=== PATIENT | male | born 1940 | race Caucasian/White ===

== ENCOUNTER 2016-12-09 22:01 | Inpatient (IN) | payer MEDICARE ==
[~2016-12-09] VITALS: Ht 177.8 cm; Wt 80.0 kg
--- NOTE | 2016-12-09 22:33 | PHYS DOC ---
Past Medical History Past Medical History: Anxiety, Bipolar, GERD, High Cholesterol, Hypertension, Other Additional Past Medical Histor: chronic hip pain, epilepsy, restless leg, rhabomylolysis, spinal stenosis Past Surgical History: Appendectomy, Tonsillectomy Additional Past Surgical Histo: orif left leg Alcohol Use: None Drug Use: None Adult General Chief Complaint Chief Complaint: ABNORMAL LABS HPI HPI 76-year-old male who is presenting with an [facility]. Patient apparently has had multiple falls and multiple mental status over the last 2-3 days. He is in no acute distress in the room and is fully alert and oriented and able answer all my questions. He denies any significant pain other than his usual chronic pain that he has in his bilateral hips. He does state he had a blood clot that affected his vision several months ago and was on Plavix therapy but recently was taken off his Plavix after developing an epidural hematoma. He denies any other history of blood clots. She normally requires oxygen therapy for history of COPD. He is saturating appropriately on 2 L nasal cannula. He denies any chest pain. He denies any recent cough or fever. Review of Systems Review of Systems Constitutional: Denies fever or chills [] Eyes: Denies change in visual acuity, redness, or eye pain [] HENT: Denies nasal congestion or sore throat [] Respiratory: Denies cough, has shortness of breath [] Cardiovascular: No additional information not addressed in HPI [] GI: Denies abdominal pain, nausea, vomiting, bloody stools or diarrhea [] : Denies dysuria or hematuria [] Musculoskeletal: Denies back pain or joint pain [] Integument: Denies rash or skin lesions [] Neurologic: Denies headache, focal weakness or sensory changes [] Endocrine: Denies polyuria or polydipsia [] Current Medications Current Medications Current Medications Medications (Trade) Dose Ordered Sig/Umm Start Time Stop Time Status Last Admin Dose Admin Info (Do NOT chart on this entry -- for MONITORING) 1 each PRN DAILY PRN 12/09/16 23:15 12/11/16 23:14 Iohexol (Omnipaque 300 Mg/ml) 75 ml 1X ONCE 12/09/16 23:00 12/09/16 23:01 DC Allergies Allergies Allergies Coded Allergies Type Severity Reaction Last Updated Verified No Known Drug Allergies 12/09/16 No Physical Exam Physical Exam Constitutional: Well developed, well nourished, no acute distress, non-toxic appearance. [] HENT: Normocephalic, atraumatic, bilateral external ears normal, oropharynx moist, no oral exudates, nose normal. [] Eyes: PERRLA, EOMI, conjunctiva normal, no discharge. [] Neck: Normal range of motion, no tenderness, supple, no stridor. [] Cardiovascular:Heart rate regular rhythm, no murmur [] Lungs & Thorax: Bilateral breath sounds clear to auscultation [] Abdomen: Bowel sounds normal, soft, no tenderness, no masses, no pulsatile masses. [] Skin: Warm, dry, no erythema, no rash. [] Back: No tenderness, no CVA tenderness. [] Extremities: No tenderness, no cyanosis, no clubbing, ROM intact, no edema. [] Neurologic: Alert and oriented X 3, normal motor function, normal sensory function, no focal deficits noted. [] Psychologic: Affect normal, judgement normal, mood normal. [] Current Patient Data Vital Signs Vital Signs Date Time Temp Pulse Resp B/P Pulse Ox O2 Delivery O2 Flow Rate FiO2 12/09/16 22:33 72 143/86 94 Room Air 12/09/16 22:05 99.0 18 2 99.0 Lab Values Laboratory Tests Test 12/09/16 22:30 12/09/16 22:48 White Blood Count 8.4x10^3/uL (4.0-11.0) Red Blood Count 3.68x10^6/uL (4.30-5.70) L Hemoglobin 12.2g/dL (13.0-17.5) L Hematocrit 35.6% (39.0-53.0) L Mean Corpuscular Volume 97fL (79-100) Mean Corpuscular Hemoglobin 33pg (25-35) Mean Corpuscular Hemoglobin Concent 34g/dL (31-37) Red Cell Distribution Width 13.8% (11.5-14.5) Platelet Count 172x10^3/uL (140-400) Neutrophils (%) (Auto) 87% (31-73) H Lymphocytes (%) (Auto) 5% (24-48) L Monocytes (%) (Auto) 8% (0-9) Eosinophils (%) (Auto) 0% (0-3) Basophils (%) (Auto) 1% (0-3) Neutrophils # (Auto) 7.2x10^3uL (1.8-7.7) Lymphocytes # (Auto) 0.4x10^3/uL (1.0-4.8) L Monocytes # (Auto) 0.6x10^3/uL (0.0-1.1) Eosinophils # (Auto) 0.0x10^3/uL (0.0-0.7) Basophils # (Auto) 0.0x10^3/uL (0.0-0.2) Segmented Neutrophils % 86% (35-66) H Lymphocytes % 8% (24-48) L Monocytes % 6% (0-10) Platelet Estimate Adequate (ADEQUATE) Sodium Level 136mmol/L (136-145) Potassium Level 4.0mmol/L (3.5-5.1) Chloride Level 100mmol/L (98-107) Carbon Dioxide Level 28mmol/L (21-32) Anion Gap 8 (6-14) Blood Urea Nitrogen 16mg/dL (8-26) Creatinine 1.1mg/dL (0.7-1.3) Estimated GFR (Cockcroft-Gault) 65.1 Glucose Level 118mg/dL (70-99) H Calcium Level 8.8mg/dL (8.5-10.1) Troponin I Quantitative < 0.017ng/mL (0.000-0.055) Urine Collection Type Unknown Urine Color Yellow Urine Clarity Clear Urine pH 8.0 Urine Specific [place] <=1.005 Urine Protein Negativemg/dL (NEG-TRACE) Urine Glucose (UA) Negativemg/dL (NEG) Urine Ketones (Stick) Negativemg/dL (NEG) Urine Blood Negative (NEG) Urine Nitrite Negative (NEG) Urine Bilirubin Negative (NEG) Urine Urobilinogen Dipstick 1.0mg/dL (0.2 mg/dL) Urine Leukocyte Esterase Negative (NEG) Urine RBC Rare/HPF (0-2) Urine WBC 0/HPF (0-4) Urine Squamous Epithelial Cells Occ/LPF Urine Bacteria 0/HPF (0-FEW) Urine Opiates Screen Pos (NEG) Urine Methadone Screen Neg (NEG) Urine Barbiturates Neg (NEG) Urine Phencyclidine Screen Neg (NEG) Urine Amphetamine/Methamphetamine Neg (NEG) Urine Benzodiazepines Screen Neg (NEG) Urine Cocaine Screen Neg (NEG) Urine Cannabinoids Screen Neg (NEG) Urine Ethyl Alcohol Neg (NEG) Laboratory Tests 12/09/16 22:30 Laboratory Tests 12/09/16 22:30 EKG EKG His EKG demonstrates a sinus rhythm with rate of 78 bpm with no acute ischemic findings seen. His intervals are normal. There is no ectopy. There is a leftward axis. This EKG does not meet STEMI criteria. Radiology/Procedures Radiology/Procedures CTA of the chest demonstrates the following: PROCEDURE CT angiogram chest. HISTORY Short of air. TECHNIQUE Axial images and coronal and sagittal maximum intensity projection re-formatted images are provided. 75 milliliters of intravenous Omnipaque 300 was administered. One or more of the following individualized dose reduction techniques were utilized for this exam: 1. Automated exposure control. 2. Adjustment of the mA and/or kV according to patient's size. 3. Use of iterative reconstruction technique. COMPARISON None. FINDINGS The contrast bolus is satisfactory. There is thrombus noted within a left upper lobe pulmonary artery, axial image 60 and coronal image 30. Additional eccentric thrombus is noted in a left upper lobe pulmonary artery, axial image 64. There is no right heart strain. There is no evidence of pulmonary infarct. Ascending aorta is ectatic, 4.3 centimeters in diameter. There is atheromatous disease in the thoracic aorta. Heart is not enlarged. Coronary artery calcifications are mild. There is no hilar or mediastinal adenopathy. Central airways are patent. There are linear bands of atelectasis in the lung bases along with dependent atelectasis. There is no pleural effusion. There is elevation of the right hemidiaphragm. There are degenerative changes in the spine. Report was called to the ER physician. IMPRESSION - Exam is positive for pulmonary embolism in the left upper lobe segmental arteries, some of this thrombus is eccentrically positioned and could be chronic. Correlate with exam findings. - No evidence of heart strain. - Ectasia of ascending aorta. One view of the chest did show some overlying bowel pattern below the right hemidiaphragm but no other acute abnormality as interpreted by me. Electronically signed by: Yan Acosta MD (Dec 09, 2016 23:54:00) PROCEDURE CT abdomen and pelvis with contrast. HISTORY Abdominal pain. Concern for free air on KUB. TECHNIQUE Axial images and coronal and sagittal re-formatted images are provided. 75 milliliters of intravenous Omnipaque 300 was administered for today's exams. One or more of the following individualized dose reduction techniques were utilized for this exam: 1. Automated exposure control. 2. Adjustment of the mA and/or kV according to patient's size. 3. Use of iterative reconstruction technique. COMPARISON None. FINDINGS There is colonic interposition between the liver and diaphragm corresponding to the area of concern on KUB. There is no definite free air. Sub centimeter low-density lesion in the liver is probably a cyst. Gallbladder is contracted. Spleen is not enlarged. Pancreas and adrenals are unremarkable. Kidneys are symmetrically perfused. There is atheromatous disease in the abdominal aorta without aneurysm. There is no small bowel obstruction or mural thickening. There is a moderate amount of stool in the colon. Bladder is unremarkable. Prostate is not enlarged. Prominent fat in the left inguinal canal is noted, mild. There is subcutaneous edema. There are degenerative changes in the spine. IMPRESSION Colonic interposition between the liver and diaphragm corresponding to the area of concern on KUB. No evidence of free air. Electronically signed by: Yan Acosta MD (Dec 09, 2016 23:58:29 Course & Med Decision Making Course & Med Decision Making Pertinent Labs and Imaging studies reviewed. (See chart for details) 76 year old male who presents from [facility] for an elevated d-dimer after having several falls and some altered mental status will have a full laboratory workup including a CTA of his chest to rule out any pulmonary embolus. His EKG is unremarkable this time. His laboratory workup is fairly unremarkable. CT of his chest demonstrates some pulmonary emboli that could be chronic in the segmental arteries of the left upper lobe. Be admitting him for this finding in his continued mental status changes well. A dose of Lovenox was administered. I discussed these findings with the hospitalist, Dr. Hawkins, who agreed with this plan to admit and be further evaluated. He was admitted without incident. Dragon Disclaimer Dragon Disclaimer This electronic medical record was generated, in whole or in part, using a voice recognition dictation system. Departure Departure Impression: Primary Impression: Pulmonary embolism Disposition: ADMITTED INPATIENT Admitting Physician: Giselle Hawkins Condition: STABLE ELE WHALEY DO Dec 09, 2016 22:33
[2016-12-09 22:41] LABS: BASO % 1 % (0-3); EOS % 0 % (0-3); HEMATOCRIT 35.6 % (39.0-53.0); HEMOGLOBIN 12.2 g/dL (13.0-17.5); LYMPH # 0.4 x10^3/uL (1.0-4.8); LYMPH % 5 % (24-48); MEAN CORPUSCULAR HEMOGLOBIN 33 pg (25-35); MEAN CORPUSCULAR HGB CONC 34 g/dL (31-37); MEAN CORPUSCULAR VOLUME 97 fL (79-100); MONO % 8 % (0-9); NEUT % 87 % (31-73); PLATELET COUNT 172 x10^3/uL (140-400); RED BLOOD COUNT 3.68 x10^6/uL (4.30-5.70); RED CELL DISTRIBUTION WIDTH 13.8 % (11.5-14.5); WHITE BLOOD COUNT 8.4 x10^3/uL (4.0-11.0)
[2016-12-09 22:52] LABS: CALCIUM 8.8 mg/dL (8.5-10.1); CREATININE 1.1 mg/dL (0.7-1.3); GFR 65.1
[2016-12-09 22:54] LABS: BILIRUBIN,URINE NEGATIVE (NEG); GLUCOSE,URINE NEGATIVE (NEG); NITRITE,URINE NEGATIVE (NEG); PROTEIN,URINE NEGATIVE (NEG-TRACE)
[2016-12-09] MEDS ORDERED: IOHEXOL 300 MG/ML 75 ML VIAL IV ONE (23:00)
[2016-12-09 23:05] LABS: BACTERIA,URINE 0 /HPF (0-FEW); RBC,URINE RARE /HPF (0-2); SQUAMOUS EPITHELIAL CELL,UR OCC /LPF; WBC,URINE 0 /HPF (0-4)
[2016-12-09 23:05] LABS: PLT ESTIMATE ADEQUATE (ADEQUATE)
[2016-12-09] MEDS ORDERED: CONTRAST GIVEN MC PRN (23:15)
--- NOTE | 2016-12-09 23:55 | RAD ---
PROCEDURE CT angiogram chest. HISTORY Short of air. TECHNIQUE Axial images and coronal and sagittal maximum intensity projection re-formatted images are provided. 75 milliliters of intravenous Omnipaque 300 was administered. One or more of the following individualized dose reduction techniques were utilized for this exam: 1. Automated exposure control. 2. Adjustment of the mA and/or kV according to patient's size. 3. Use of iterative reconstruction technique. COMPARISON None. FINDINGS The contrast bolus is satisfactory. There is thrombus noted within a left upper lobe pulmonary artery, axial image 60 and coronal image 30. Additional eccentric thrombus is noted in a left upper lobe pulmonary artery, axial image 64. There is no right heart strain. There is no evidence of pulmonary infarct. Ascending aorta is ectatic, 4.3 centimeters in diameter. There is atheromatous disease in the thoracic aorta. Heart is not enlarged. Coronary artery calcifications are mild. There is no hilar or mediastinal adenopathy. Central airways are patent. There are linear bands of atelectasis in the lung bases along with dependent atelectasis. There is no pleural effusion. There is elevation of the right hemidiaphragm. There are degenerative changes in the spine. Report was called to the ER physician. IMPRESSION - Exam is positive for pulmonary embolism in the left upper lobe segmental arteries, some of this thrombus is eccentrically positioned and could be chronic. Correlate with exam findings. - No evidence of heart strain. - Ectasia of ascending aorta. Electronically signed by: Yan Acosta MD (Dec 09, 2016 23:54:00)
--- NOTE | 2016-12-09 23:59 | RAD ---
PROCEDURE CT abdomen and pelvis with contrast. HISTORY Abdominal pain. Concern for free air on KUB. TECHNIQUE Axial images and coronal and sagittal re-formatted images are provided. 75 milliliters of intravenous Omnipaque 300 was administered for today's exams. One or more of the following individualized dose reduction techniques were utilized for this exam: 1. Automated exposure control. 2. Adjustment of the mA and/or kV according to patient's size. 3. Use of iterative reconstruction technique. COMPARISON None. FINDINGS There is colonic interposition between the liver and diaphragm corresponding to the area of concern on KUB. There is no definite free air. Sub centimeter low-density lesion in the liver is probably a cyst. Gallbladder is contracted. Spleen is not enlarged. Pancreas and adrenals are unremarkable. Kidneys are symmetrically perfused. There is atheromatous disease in the abdominal aorta without aneurysm. There is no small bowel obstruction or mural thickening. There is a moderate amount of stool in the colon. Bladder is unremarkable. Prostate is not enlarged. Prominent fat in the left inguinal canal is noted, mild. There is subcutaneous edema. There are degenerative changes in the spine. IMPRESSION Colonic interposition between the liver and diaphragm corresponding to the area of concern on KUB. No evidence of free air. Electronically signed by: Yan Acosta MD (Dec 09, 2016 23:58:29)
[2016-12-10] MEDS ORDERED: ONDANSETRON PF 4 MG/2 ML VIAL. IV PRN ×2 (00:15→08:56)
[2016-12-10] MEDS ORDERED: ENOXAPARIN ** NOTE DOSE ** SYRINGE SQ ONE (00:15)
[2016-12-10] MEDS ORDERED: ACETAMINOPHEN 325 MG TABLET. PO PRN (00:15)
[2016-12-10] MEDS ORDERED: IV NORMAL SALINE 1000ML BAG 1,000 ML IV SCH (00:15)
[2016-12-10 00:42] LABS: BARBITURATES NEG (NEG); BENZODIAZEPINES NEG (NEG); CANNABINOIDS NEG (NEG); COCAINE NEG (NEG); METHADONE NEG (NEG); OPIATES POS (NEG); PHENCYCLIDINE NEG (NEG)
[2016-12-10 00:43] LABS: ETHANOL, URINE NEG (NEG)
--- NOTE | 2016-12-10 01:14 | ACF ---
Admission Forms Criteria PULMONARY EMBOLISM Clinical Indications for Admission to Inpatient Care (Place 'X' for any and all applicable criteria): Admission is indicated by ANY ONE of the following 1,2,3,4,5 [ ]I. Onset of hypoxia [ ]II. Hemodynamic instability 5 [ ]III. Massive pulmonary embolism (eg, acute embolism causing sustained hypotension, pulselessness, or bradycardia)5 [ ]IV. Need for IV narcotics (eg, to treat dyspnea) [ ]V. Current use of home oxygen therapy [ ]. Active bleeding [ ]VII. Recent surgery [ ]VIII. Active peptic ulcer disease [ ]IX. Documented extensive thrombosis (eg, clot in vena cava or above iliofemoral bifurcation) [ ]X. Embolism while on anticoagulation [ ]XI. 6 [X]XII. Appropriate monitoring and therapy cannot be provided in home or outpatient setting. [ ]XIII. Systemic or catheter-directed thrombolysis 5,7 [ ]XIV. Catheter embolectomy and fragmentation 6 [ ]XV. Vena cava filter placement5 [ ]XVI. Severely diminished cardiopulmonary reserve (eg, cor pulmonale, pulmonary hypertension) [ ]XVII. Severe renal failure (eg, GFR less than 30 mL/min/1.73m2 (0.5 mL/sec/ 1.73m2)) [ ]XVIII.Right ventricular dysfunction (eg, by echocardiogram) 6,11 [ ]XIX. Positive cardiac biomarker (eg, troponin T or I > 0.1 ng/mL (mcg/L), highly sensitive troponin I assay greater than 0.014 ng/mL (mcg/L), BNP or NT proBNP > assay threshold)5,8,9 [ ]XX. Known clotting abn or def (eg, liver disease, antithrombin III, protein C, or protein S abnormality) [ ]XXI. History of heparin-induced thrombocytopenia [ ]XXII. Inpatient admission required rather than observation care (Also use Pulmonary Embolism: Observation Care guideline as appropriate) because of ANY ONE of the following: [ ] a) Significant autoimmune (thrombocytopenia) or coagulopathic reaction occurs in response to anticoagulation [ ] b) Respiratory symptoms (eg, tachypnea, dyspnea) that are severe or persistent [ ] c) Other condition, treatment, or monitoring requiring inpatient admission Extended stay beyond goal length of stay may be needed for 3,28 [ ]a) Hemorrhage or recent surgery [ ]b) Recurrent thromboembolism [ ]c) Persistent hypoxemia [ ]d) Heparin-induced thrombocytopenia The original [facility] content created by [facility] has been revised. The portions of the content which have been revised are identified through the use of italic text or in bold, and [facility] has neither reviewed nor approved the modified material. All other unmodified content is copyright [facility]. Please see references footnoted in the original [facility] edition 2016 Admission Criteria Met?: Yes PADMAJA HERRERA Dec 10, 2016 01:14
--- NOTE | 2016-12-10 01:17 | EKG ---
[facility] [address] [place] [address] Test Date: 2016-12-09 Test Time: 22:20:41 Pat Name: SEBASTIAN CHAVARRIA Department: Room: Gender: M [employer] Teacher: : 1940 Requested By: ELE WHALEY Order Number: [id number] Reading MD: Measurements Intervals [place] Rate: 78 P: 68 IA: 178 QRS: -7 QRSD: 92 T: 62 QT: 396 QTc: 455 Interpretive Statements SINUS RHYTHM LEFTWARD AXIS OTHERWISE NORMAL ECG RI6.01 No previous ECG available for comparison
[2016-12-10 02:15] VITALS: BP 164/85
[2016-12-10] MEDS ORDERED: MAGN400O4 PO (03:12)
[2016-12-10] MEDS ORDERED: FLUO40CA2 PO (03:12)
[2016-12-10] MEDS ORDERED: GABA-586 PO (03:12)
[2016-12-10] MEDS ORDERED: CYCL10TA2 PO (03:12)
[2016-12-10] MEDS ORDERED: CALC-56 PO (03:12)
[2016-12-10] MEDS ORDERED: TAMS0.4C2 PO (03:12)
[2016-12-10] MEDS ORDERED: CLON2TAB2 PO (03:12)
[2016-12-10] MEDS ORDERED: MELO-156 PO (03:12)
[2016-12-10] MEDS ORDERED: LAMO200T PO (03:12)
[2016-12-10] MEDS ORDERED: BISA10SU55 RC (03:12)
[2016-12-10] MEDS ORDERED: NA P133E2 RC (03:12)
[2016-12-10] MEDS ORDERED: MORP15TA PO (03:12)
[2016-12-10] MEDS ORDERED: MULT1TAB90 PO (03:12)
[2016-12-10] MEDS ORDERED: LIDO700A4 TP (03:12)
[2016-12-10] MEDS ORDERED: IPRA3AMP NEB (03:12)
[2016-12-10] MEDS ORDERED: CYAN100031 PO (03:12)
[2016-12-10] MEDS ORDERED: MAG360OR24 PO (03:12)
[2016-12-10] MEDS ORDERED: DOCU100C5 PO (03:12)
[2016-12-10] MEDS ORDERED: OMEP40CA5 PO (03:12)
[2016-12-10] MEDS ORDERED: RISP2TAB3 PO (03:12)
[2016-12-10] MEDS ORDERED: ATOR20TA58 PO (03:12)
[2016-12-10] MEDS ORDERED: GABA-585 PO (03:12)
[2016-12-10] MEDS ORDERED: [UNRECOGNIZED DRUG - CODE] PO (03:12)
[2016-12-10] MEDS ORDERED: OXYB5SYR2 PO (03:12)
[2016-12-10] MEDS ORDERED: GLUC1TAB33 PO (03:12)
[2016-12-10 07:57] VITALS: BP 171/97
[2016-12-10] MEDS ORDERED: [UNRECOGNIZED DRUG - OTHER] PO SCH (09:00)
[2016-12-10] MEDS ORDERED: SODIUM PHOSPHATES 19/7GM 133 ML ENEMA. RC PRN (09:00)
[2016-12-10] MEDS ORDERED: CYCLOBENZAPRINE 10 MG TABLET. PO PRN (09:00)
[2016-12-10] MEDS ORDERED: ALBUTEROL SULFATE 2.5 MG/3 ML NEBU. NEB PRN (09:00)
[2016-12-10] MEDS ORDERED: GLUC SU PO SCH (09:00)
[2016-12-10] MEDS ORDERED: CHONDRO SU A PO SCH (09:00)
[2016-12-10] MEDS ORDERED: MAGNESIUM HYDROXIDE 2,400 MG/30 ML ORAL.SUSP. PO PRN (09:00)
[2016-12-10] MEDS ORDERED: DOCUSATE SODIUM 100 MG CAPSULE PO PRN (09:00)
[2016-12-10] MEDS ORDERED: VIT C PO SCH (09:00)
[2016-12-10] MEDS ORDERED: BISACODYL 10 MG SUPP.RECT. RC PRN (09:00)
[2016-12-10] MEDS ORDERED: ANTI-COAG MONITOR BY PHARMACY. MC PRN (09:15)
[2016-12-10] MEDS ORDERED: MAG HYDROX/ALUMINUM HYD/SIMETH 30 ML ORAL.SUSP PO PRN (09:30)
--- NOTE | 2016-12-10 10:03 | PDOC ---
Provider Note Provider Note [id number] pe gerd anti coag le venous doppler ADELE FARIAS MD Dec 10, 2016 10:03
[2016-12-10] MEDS: LIDOCAINE (700MG/PATCH) PATCH. TP SCH (10:34)
[2016-12-10] MEDS: MORPHINE IR 15 MG TABLET PO PRN (10:37)
[2016-12-10] MEDS: CYANOCOBALAMIN (VITAMIN B-12) 1,000 MCG TABLET. PO SCH (10:38)
[2016-12-10] MEDS: GABAPENTIN 100 MG CAPSULE. PO SCH (10:38)
[2016-12-10] MEDS: MULTIVITAMIN with MINERAL TABLET. PO SCH (10:38)
[2016-12-10] MEDS: CALCIUM CARB/VIT D3 500/200 TABLET. PO SCH (10:38)
[2016-12-10] MEDS: ASCORBIC ACID 500 MG TABLET PO SCH (10:38)
[2016-12-10] MEDS: TAMSULOSIN 0.4 MG CAP.ER.24H. PO SCH (10:39)
[2016-12-10] MEDS: lamoTRIgine 100 MG TABLET. PO SCH (10:39)
[2016-12-10] MEDS: OXYBUTYNIN CHLORIDE 5 MG TABLET PO SCH ×3 (10:39→21:37)
[2016-12-10] MEDS: PANTOPRAZOLE 40 MG TABLET. PO SCH (10:40)
[2016-12-10] MEDS: FLUOXETINE HCL 20 MG CAPSULE PO SCH (10:41)
[2016-12-10] MEDS: ENOXAPARIN ** NOTE DOSE ** SYRINGE SQ SCH ×2 (10:42→21:38)
[2016-12-10 11:28] VITALS: BP 151/94
--- NOTE | 2016-12-10 11:59 | PDOC1 ---
History and Physical Date of Admission Date of Admission DATE: 12/10/16 TIME: 11:51 Identification/Chief Complaint Chief Complaint sent form [facility] bec of elevated d dimer./abn labs Source Source: Caregiver, Chart review, Patient History of Present Illness History of Present Illness 76 y.o male who has been staying at [facility] x 1 week now, sent by staff bec of abN labs/elevated d dimer, BUt accdg to pt he has been having worse Left > R hip pain, that was his main complaint. HE ambulates with wheelchair. LAbs ok except for elevated d dimer and so CTA done at ER and showed small, eccentric possibly subacute PE,. NO desaturations, pt denies SOA, got a dose of Lovenox 80 SQ once at ER, Hemodynamically stable. 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 No evidence of free air. Pt not the best historian Past Medical History Psych: Depression Musculoskeletal: low back pain Renal/: Benign prostatic enlarg. Past Surgical History Past Surgical History: No pertinent history Family History Family History: No Significant Social History Smoke: No ALCOHOL: none Drugs: None Current Problem List Problem List Problems Medical Problems: (1) Pulmonary embolism Status: Acute Problems: Current Medications Current Medications Current Medications Iohexol (Omnipaque 300 Mg/ml) 75 ml 1X ONCE IV ; Start 12/09/16 at 23:00; Stop 12/09/16 at 23:01; Status DC Info (Do NOT chart on this entry -- for MONITORING) 1 each PRN DAILY PRN MC SEE COMMENTS; Start 12/09/16 at 23:15; Stop 12/11/16 at 23:14 Enoxaparin Sodium (Lovenox 80mg Syringe) 80 mg 1X ONCE SQ Last administered on 12/10/16 00:43; Start 12/10/16 at 00:15; Stop 12/10/16 at 00:16; Status DC Ondansetron HCl 4 mg 4 mg PRN Q8HRS PRN IV NAUSEA/VOMITING; Start 12/10/16 at 00:15; Stop 12/10/16 at 08:59; Status DC Sodium Chloride (Iv Sodium Chloride 0.9% 1000ml Bag) 1,000 ml @ 100 mls/hr Q10H IV Last administered on 12/10/16 04:05; Start 12/10/16 at 00:15; Stop at 00:14 Acetaminophen (Tylenol) 650 mg PRN Q4HRS PRN PO FEVER; Start 12/10/16 at 00:15 ; Stop 12/11/16 at 00:14 Ondansetron HCl (Zofran) 4 mg PRN Q6HRS PRN IV NAUSEA/VOMITING; Start 12/10/16 at 08:56 Enoxaparin Sodium (Lovenox 80mg Syringe) 80 mg Q12HR SQ Last administered on 10:42; Start 12/10/16 at 09:30 Atorvastatin Calcium (Lipitor) 20 mg HS PO ; Start 12/10/16 at 21:00 Bisacodyl (Dulcolax Supp) 10 mg PRN DAILY PRN RC CONSTIPATION; Start 12/10/16 at 09:00 Calcium/Vitamin D (Oscal D 500mg/ 200uts) 1 tab DAILY PO Last administered on 10:38; Start 12/10/16 at 10:00 Cyclobenzaprine HCl (Flexeril) 10 mg PRN Q8HRS PRN PO MUSCLE SPASMS; Start at 09:00 Docusate Sodium (Colace) 100 mg PRN BID PRN PO CONSTIPATION; Start 12/10/16 at 09:00 Gabapentin (Neurontin) 200 mg DAILY PO Last administered on 12/10/16 10:38; Start 12/10/16 at 09:30 Gabapentin (Neurontin) 300 mg HS PO ; Start 12/10/16 at 21:00 Albuterol Sulfate (Ventolin Neb Soln) 2.5 mg PRN Q4HRS PRN NEB SHORTNESS OF BREATH; Start 12/10/16 at 09:00 Lidocaine (Lidoderm) 1 patch DAILY TP Last administered on 12/10/16 10:34; Start 12/10/16 at 09:30 Magnesium Hydroxide (Milk Of Magnesia) 400 mg PRN DAILY PRN PO CONSTIPATION; Start 12/10/16 at 09:00 Morphine Sulfate (Morphine Ir) 15 mg PRN Q4HRS PRN PO PAIN SEVERE Last administered on 12/10/16 10:37; Start 12/10/16 at 09:00 Multivitamins (Thera M Plus) 1 tab DAILY PO Last administered on 12/10/16 10: 38; Start 12/10/16 at 09:30 Sodium Biphosphate/ Sodium Phosphate (Fleet Adult) 133 ml PRN DAILY PRN RC CONSTIPATION; Start 12/10/16 at 09:00 Tamsulosin HCl (Flomax) 0.4 mg DAILY PO Last administered on 12/10/16 10:39; Start 12/10/16 at 09:30 Ascorbic Acid (Vitamin C) 1,000 mg DAILY PO Last administered on 12/10/16 10: 38; Start 12/10/16 at 10:00 Clonazepam (Klonopin) 2 mg QHS PO ; Start 12/10/16 at 21:00 Cyanocobalamin (Vitamin B-12) 1,000 mcg DAILY PO Last administered on 10:38; Start 12/10/16 at 09:30 Fluoxetine HCl (Prozac) 40 mg DAILY PO Last administered on 12/10/16 10:41; Start 12/10/16 at 09:30 Non-Formulary Medication 1 each DAILY PO ; Start 12/10/16 at 09:00; Status UNV Lamotrigine (LaMICtal) 200 mg DAILY PO Last administered on 12/10/16 10:39; Start 12/10/16 at 09:30 Al Hydroxide/Mg Hydroxide (Mylanta Plus Xs) 30 ml PRN Q2HR PRN PO CONSTIPATION ; Start 12/10/16 at 09:30 Pantoprazole Sodium (Protonix) 40 mg DAILYAC PO Last administered on 12/10/16 10:40; Start 12/10/16 at 09:30 Oxybutynin Chloride (Ditropan) 5 mg [id number] PO Last administered on 12/10/16 10 :39; Start 12/10/16 at 09:30 Risperidone (Risperdal) 2 mg QHS PO ; Start 12/10/16 at 21:00 Info (Anti-Coagulation Monitoring By Pharmacy) 1 each PRN DAILY PRN MC SEE COMMENTS; Start 12/10/16 at 09:15 Active Scripts Active Reported Alum-Mag Hydroxide-Simeth Liq (Mag Hydrox/Al Hydrox/Simeth) 360 Ml Oral.susp 360 Ml PO PRN Q4HRS PRN Risperidone 2 Mg Tablet 1 Tab PO QHS Tamsulosin Hcl 0.4 Mg Cap.er.24h 1 Cap PO DAILY Cyclobenzaprine Hcl 10 Mg Tablet 1 Tab PO PRN Q8HRS PRN Fleet Enema (Na Phos,M-B/Na Phos,Di-Ba) 133 Ml Enema 1 Each RC DAILY PRN Dulcolax (Bisacodyl) 10 Mg Supp.rect 10 Mg RC PRN DAILY PRN Milk Of Magnesia (Magnesium Hydroxide) 400 Mg/5 Ml Oral.susp 400 Mg PO DAILY PRN Atorvastatin Calcium 20 Mg Tablet 20 Mg PO HS Docusate Sodium 100 Mg Capsule 1 Cap PO BID PRN Calcium 500 + Vit D 200 Caplet (Calcium Carbonate/Vitamin D3) 1 Each Tablet 1 Each PO DAILY Fluoxetine Hcl 40 Mg Capsule 1 Cap PO DAILYWBKFT C-1000 (Ascorbic Acid) 1,000 Mg Tablet 1,000 Mg PO DAILY B-12 (Cyanocobalamin (Vitamin B-12)) 1,000 Mcg Tablet.er 1,000 Mcg PO DAILY Omeprazole 40 Mg Capsule.dr 1 Cap PO DAILY Lamotrigine 200 Mg Tablet 1 Tab PO DAILY Glucosamine Chondroitin Tab (Gluc Cherry/Chondro Cherry A/Vit C/Mn) 1 Each Tablet 1 Each PO DAILY Thera-M Tablet (Multivits,Ca,Minerals/Iron/Fa) 1 Each Tablet 1 Each PO Lidoderm (Lidocaine) 700 Mg Adh..patch 1 Patch TP DAILY Meloxicam 7.5 Mg Tablet 1 Tab PO BID Oxybutynin Chloride 5 Mg/5 Ml Syrup 5 Mg PO TID Clonazepam 2 Mg Tablet 1 Tab PO HS Morphine Sulfate 15 Mg Tablet 15 Mg PO PRN Q4HRS PRN Gabapentin 300 Mg Capsule 300 Mg PO HS Gabapentin 100 Mg Capsule 200 Mg PO DAILY Duoneb 0.5-3(2.5) Mg/3 Ml (Albuterol/Ipratropium) 3 Ml Ampul.neb 3 Ml NEB PRN Q4HRS PRN Allergies Allergies: Coded Allergies: No Known Drug Allergies (Unverified , 12/09/16) ROS Review of System back pain, left > R hip pain, no soa, no cp, no n/v/d Physical Exam General: Alert, Oriented X3, Cooperative, No acute distress HEENT: Atraumatic Lungs: Clear to auscultation Heart: S1S2, RRR, no thrills, no rubs, no gallops, no murmurs Cardiovascular: S1, S2 Abdomen: Normal bowel sounds, Soft, No tenderness, No hepatosplenomegaly, No masses Male Genitals Exam: normal genitalia, normal prostate Rectal Exam: not examined PELVIC: Nml ext genitalia Extremities: Other (bruise Left upper arm and left side) Skin: Other (as above) Neuro: Normal gait, Normal speech, Strength at 5/5 X4 ext, Normal tone, Sensation intact, Cranial nerves 3-12 NL, Reflexes 2+ Psych/Mental Status: Mental status NL, Mood NL Vitals Vitals Vital Signs Date Time Temp Pulse Resp B/P Pulse Ox O2 Delivery O2 Flow Rate FiO2 12/10/16 11:28 98.7 78 20 151/94 90 Room Air 98.7 12/10/16 10:37 2.0 Labs Labs Laboratory Tests Test 12/09/16 22:30 12/09/16 22:48 White Blood Count 8.4x10^3/uL (4.0-11.0) Red Blood Count 3.68x10^6/uL (4.30-5.70) Hemoglobin 12.2g/dL (13.0-17.5) Hematocrit 35.6% (39.0-53.0) Mean Corpuscular Volume 97fL (79-100) Mean Corpuscular Hemoglobin 33pg (25-35) Mean Corpuscular Hemoglobin Concent 34g/dL (31-37) Red Cell Distribution Width 13.8% (11.5-14.5) Platelet Count 172x10^3/uL (140-400) Neutrophils (%) (Auto) 87% (31-73) Lymphocytes (%) (Auto) 5% (24-48) Monocytes (%) (Auto) 8% (0-9) Eosinophils (%) (Auto) 0% (0-3) Basophils (%) (Auto) 1% (0-3) Neutrophils # (Auto) 7.2x10^3uL (1.8-7.7) Lymphocytes # (Auto) 0.4x10^3/uL (1.0-4.8) Monocytes # (Auto) 0.6x10^3/uL (0.0-1.1) Eosinophils # (Auto) 0.0x10^3/uL (0.0-0.7) Basophils # (Auto) 0.0x10^3/uL (0.0-0.2) Segmented Neutrophils % 86% (35-66) Lymphocytes % 8% (24-48) Monocytes % 6% (0-10) Platelet Estimate Adequate (ADEQUATE) Sodium Level 136mmol/L (136-145) Potassium Level 4.0mmol/L (3.5-5.1) Chloride Level 100mmol/L (98-107) Carbon Dioxide Level 28mmol/L (21-32) Anion Gap 8 (6-14) Blood Urea Nitrogen 16mg/dL (8-26) Creatinine 1.1mg/dL (0.7-1.3) Estimated GFR (Cockcroft-Gault) 65.1 Glucose Level 118mg/dL (70-99) Calcium Level 8.8mg/dL (8.5-10.1) Troponin I Quantitative < 0.017ng/mL (0.000-0.055) Urine Collection Type Unknown Urine Color Yellow Urine Clarity Clear Urine pH 8.0 Urine Specific [place] <=1.005 Urine Protein Negativemg/dL (NEG-TRACE) Urine Glucose (UA) Negativemg/dL (NEG) Urine Ketones (Stick) Negativemg/dL (NEG) Urine Blood Negative (NEG) Urine Nitrite Negative (NEG) Urine Bilirubin Negative (NEG) Urine Urobilinogen Dipstick 1.0mg/dL (0.2 mg/dL) Urine Leukocyte Esterase Negative (NEG) Urine RBC Rare/HPF (0-2) Urine WBC 0/HPF (0-4) Urine Squamous Epithelial Cells Occ/LPF Urine Bacteria 0/HPF (0-FEW) Urine Opiates Screen Pos (NEG) Urine Methadone Screen Neg (NEG) Urine Barbiturates Neg (NEG) Urine Phencyclidine Screen Neg (NEG) Urine Amphetamine/Methamphetamine Neg (NEG) Urine Benzodiazepines Screen Neg (NEG) Urine Cocaine Screen Neg (NEG) Urine Cannabinoids Screen Neg (NEG) Urine Ethyl Alcohol Neg (NEG) Laboratory Tests Test 12/09/16 22:30 12/09/16 22:48 White Blood Count 8.4x10^3/uL (4.0-11.0) Red Blood Count 3.68x10^6/uL (4.30-5.70) Hemoglobin 12.2g/dL (13.0-17.5) Hematocrit 35.6% (39.0-53.0) Mean Corpuscular Volume 97fL (79-100) Mean Corpuscular Hemoglobin 33pg (25-35) Mean Corpuscular Hemoglobin Concent 34g/dL (31-37) Red Cell Distribution Width 13.8% (11.5-14.5) Platelet Count 172x10^3/uL (140-400) Neutrophils (%) (Auto) 87% (31-73) Lymphocytes (%) (Auto) 5% (24-48) Monocytes (%) (Auto) 8% (0-9) Eosinophils (%) (Auto) 0% (0-3) Basophils (%) (Auto) 1% (0-3) Neutrophils # (Auto) 7.2x10^3uL (1.8-7.7) Lymphocytes # (Auto) 0.4x10^3/uL (1.0-4.8) Monocytes # (Auto) 0.6x10^3/uL (0.0-1.1) Eosinophils # (Auto) 0.0x10^3/uL (0.0-0.7) Basophils # (Auto) 0.0x10^3/uL (0.0-0.2) Segmented Neutrophils % 86% (35-66) Lymphocytes % 8% (24-48) Monocytes % 6% (0-10) Platelet Estimate Adequate (ADEQUATE) Sodium Level 136mmol/L (136-145) Potassium Level 4.0mmol/L (3.5-5.1) Chloride Level 100mmol/L (98-107) Carbon Dioxide Level 28mmol/L (21-32) Anion Gap 8 (6-14) Blood Urea Nitrogen 16mg/dL (8-26) Creatinine 1.1mg/dL (0.7-1.3) Estimated GFR (Cockcroft-Gault) 65.1 Glucose Level 118mg/dL (70-99) Calcium Level 8.8mg/dL (8.5-10.1) Troponin I Quantitative < 0.017ng/mL (0.000-0.055) Urine Collection Type Unknown Urine Color Yellow Urine Clarity Clear Urine pH 8.0 Urine Specific [place] <=1.005 Urine Protein Negativemg/dL (NEG-TRACE) Urine Glucose (UA) Negativemg/dL (NEG) Urine Ketones (Stick) Negativemg/dL (NEG) Urine Blood Negative (NEG) Urine Nitrite Negative (NEG) Urine Bilirubin Negative (NEG) Urine Urobilinogen Dipstick 1.0mg/dL (0.2 mg/dL) Urine Leukocyte Esterase Negative (NEG) Urine RBC Rare/HPF (0-2) Urine WBC 0/HPF (0-4) Urine Squamous Epithelial Cells Occ/LPF Urine Bacteria 0/HPF (0-FEW) Urine Opiates Screen Pos (NEG) Urine Methadone Screen Neg (NEG) Urine Barbiturates Neg (NEG) Urine Phencyclidine Screen Neg (NEG) Urine Amphetamine/Methamphetamine Neg (NEG) Urine Benzodiazepines Screen Neg (NEG) Urine Cocaine Screen Neg (NEG) Urine Cannabinoids Screen Neg (NEG) Urine Ethyl Alcohol Neg (NEG) VTE Prophylaxis Ordered VTE Prophylaxis Devices: Yes VTE Pharmacological Prophylaxi: Yes Assessment/Plan Assessment/Plan 1. Subacute eccentric PE 2. Bruising left side possibly fall 3. Depression NOS 4. Chronic lumbago 5. Bilateral hip pain L> R 6. MOderate PCM 7. Anemia of chronic dse PLAN LOvenox 80 BID - though PE seems to be very small, eccentric, subaute and pt de jesus snot display and respi issues COnsult pulmo PT/OT Check xray hips Involve physiatry re hip pains Significant bruising on left side, if any signif pains with PT might need rib xray r/o fx Cont home meds Dw ot and RALPH ESPINAL MD Dec 10, 2016 11:59
--- NOTE | 2016-12-10 12:39 | RAD ---
Indication positive study for pulmonary embolus. Assess source. Grayscale color Doppler and spectral imaging was performed. Examination was targeted to the veins of the lower extremities. The common femoral, femoral and popliteal vessels, bilaterally, appeared normal. No thrombus was seen. The visualized calf veins also appeared normal. IMPRESSION: Negative bilateral lower extremity venous analysis for DVT
[2016-12-10 14:15] VITALS: BP 131/83
--- NOTE | 2016-12-10 14:24 | RAD ---
Indication bilateral hip pain. An AP view of the pelvis was obtained as well as additional targeted AP and frog leg views of both hips. No acute or significant bony finding is seen involving either hip. Significant degenerative changes are not seen involving either hip.
--- NOTE | 2016-12-10 15:17 | CONS ---
DATE OF CONSULTATION: 12/10/2016 I was asked to see this 76-year-old gentleman for pulmonary embolism. HISTORY OF PRESENT ILLNESS: He has a history of [id number] smoking, started smoking at age 27. He denies shortness of breath, cough, and chest pain. He has nasal congestion and runny nose. He denies gastroesophageal reflux symptoms. Of note, he had elevated D-dimer from [facility] and has had multiple falls and syncopal episodes; he does not know about the details. He was on Plavix for a blood clot which affected his vision several months ago. Plavix was stopped and he had epidural injection, but he developed epidural hematoma, and he has been off Plavix for the past month. PAST MEDICAL HISTORY: Anxiety, bipolar, gastroesophageal reflux disease, hypertension, hypercholesterolemia, CVA, and chronic pain. ALLERGIES: No known drug allergies. MEDICATIONS: Currently, he is on Lovenox, Risperdal, Klonopin, Neurontin, Lipitor, vitamin C, calcium, vitamin D, Ditropan, Protonix, Lamictal, Prozac, vitamin B12, Flomax, multivitamin. SOCIAL HISTORY: He has a history of [id number] smoking, started smoking at the age 27. FAMILY HISTORY: Positive for hypertension. REVIEW OF SYSTEMS: As mentioned above. He has had a hip pain. Other systems, otherwise, negative. PHYSICAL EXAMINATION: GENERAL: Clinically ill-appearing gentleman. His O2 saturation is 95% on 2L. Blood pressure 164/85, temperature 98.6, respiratory rate 20, heart rate 73. HEENT: Normocephalic, atraumatic. Pupils equal, round, and reactive to light. Throat is clear. Nose is inflamed. NECK: There is no JVD, lymphadenopathy, or thyromegaly. CARDIOVASCULAR: Regular rate and rhythm. PMO is nondisplaced. CHEST: Inspection is normal. LUNGS: Clear to auscultation. There is no wheezing. ABDOMEN: Soft, bowel sounds are good. There is no mass. EXTREMITIES: There is no edema. NEUROLOGIC: Alert and oriented x 3. SKIN: Chronic changes. DIAGNOSTIC DATA: I reviewed the following lab data. CT of the chest did show pulmonary embolism in left upper lobe segmental arteries. Some of the thrombus is eccentrically positioned and could be chronic. No evidence of heart strain or ectasia of ascending aorta. 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 No evidence of free-air. WBC 8.4, hemoglobin 12.2, platelets of 172. Sodium 136, potassium 4, chloride 100, C02 of 28, glucose 118, BUN 16, creatinine 1.1. Troponin less than 0.01. IMPRESSION: 1. Pulmonary embolism. 2. Abnormal CT of the chest. 3. Gastroesophageal reflux disease. 4. Hypertension. 5. Anemia. 6. Bipolar and anxiety. 7. History of cerebrovascular accident. 8. Hip pain. PLAN AND RECOMMENDATION: 1. ____ saturation 92%. 2. I agree with Lovenox 1 mg per kilogram b.i.d. subQ. 3. I will order lower extremity venous Doppler. 4. Protonix for gastroesophageal reflux disease. 5. Monitor respiratory status very closely. 6. Monitor for bleeding while the patient is on anticoagulation. 7. May consider Coumadin versus Xarelto. 8. The findings and recommendations were discussed with the patient. He understood and agrees to proceed with the plan. I have answered all of his questions. Thank you very much for allowing me to participate in care of this very nice gentleman. MIKHAIL JIN MD DR: NUPUR/reji JOB#: [id number] / [id number]
[2016-12-10 19:34] VITALS: BP 116/61
[2016-12-10] MEDS: risperiDONE 1 MG TABLET. PO SCH (21:36)
[2016-12-10] MEDS: GABAPENTIN 300 MG CAPSULE. PO SCH (21:37)
[2016-12-10] MEDS: ATORVASTATIN CALCIUM 20 MG TABLET PO SCH (21:37)
[2016-12-10] MEDS: CLONAZEPAM 1 MG TABLET PO SCH (21:37)
[2016-12-10 23:31] VITALS: BP 131/82
[2016-12-11 02:11] VITALS: BP 129/78
[2016-12-11] MEDS: MORPHINE IR 15 MG TABLET PO PRN ×4 (03:07→21:02)
[2016-12-11 05:28] LABS: BASO % 1 % (0-3); EOS % 3 % (0-3); HEMOGLOBIN 11.9 g/dL (13.0-17.5); LYMPH # 0.9 x10^3/uL (1.0-4.8); LYMPH % 13 % (24-48); MEAN CORPUSCULAR HEMOGLOBIN 34 pg (25-35); MEAN CORPUSCULAR HGB CONC 34 g/dL (31-37); MEAN CORPUSCULAR VOLUME 99 fL (79-100); MONO % 10 % (0-9); NEUT % 73 % (31-73); PLATELET COUNT 163 x10^3/uL (140-400); RED BLOOD COUNT 3.55 x10^6/uL (4.30-5.70); RED CELL DISTRIBUTION WIDTH 13.7 % (11.5-14.5); WHITE BLOOD COUNT 7.1 x10^3/uL (4.0-11.0)
[2016-12-11 05:33] LABS: CREATININE 1.1 mg/dL (0.7-1.3); GFR 65.1; POTASSIUM 3.5 mmol/L (3.5-5.1)
[2016-12-11 07:00] VITALS: BP 143/85
[2016-12-11] MEDS: LIDOCAINE (700MG/PATCH) PATCH. TP SCH (10:06)
[2016-12-11] MEDS: TAMSULOSIN 0.4 MG CAP.ER.24H. PO SCH (10:06)
[2016-12-11] MEDS: FLUOXETINE HCL 20 MG CAPSULE PO SCH (10:06)
[2016-12-11] MEDS: ENOXAPARIN ** NOTE DOSE ** SYRINGE SQ SCH ×2 (10:06→21:03)
[2016-12-11] MEDS: CYANOCOBALAMIN (VITAMIN B-12) 1,000 MCG TABLET. PO SCH (10:07)
[2016-12-11] MEDS: lamoTRIgine 100 MG TABLET. PO SCH (10:07)
[2016-12-11] MEDS: MULTIVITAMIN with MINERAL TABLET. PO SCH (10:07)
[2016-12-11] MEDS: CALCIUM CARB/VIT D3 500/200 TABLET. PO SCH (10:07)
[2016-12-11] MEDS: OXYBUTYNIN CHLORIDE 5 MG TABLET PO SCH ×3 (10:08→21:01)
[2016-12-11] MEDS: PANTOPRAZOLE 40 MG TABLET. PO SCH (10:08)
[2016-12-11] MEDS: GABAPENTIN 100 MG CAPSULE. PO SCH (10:09)
[2016-12-11] MEDS: ASCORBIC ACID 500 MG TABLET PO SCH (10:09)
[2016-12-11 10:46] VITALS: BP 102/63
--- NOTE | 2016-12-11 10:48 | PDOC ---
PULMONARY PROGRESS NOTES Subjective no sob, cough, cp, has leg and back pain Vitals Vital Signs Date Time Temp Pulse Resp B/P Pulse Ox O2 Delivery O2 Flow Rate FiO2 12/11/16 07:35 Nasal Cannula 2.0 12/11/16 07:35 18 95 12/11/16 07:00 98.2 63 143/85 98.2 Comments ros as mentioned as above other sys otherwise neg ROS: No Nausea, No Chest Pain, No Abdominal Pain, No Increase Cough General: Alert, Oriented X4 HEENT: Other (nc at perrl, nose clear) Lungs: Clear Cardiovascular: S1, S2 Abdomen: Soft, Non-tender Neuro Exam: Alert, Oriented Extremities: No Edema Skin: Warm Labs Laboratory Tests Test 12/09/16 22:30 12/09/16 22:48 12/10/16 01:50 12/11/16 04:40 White Blood Count 8.4x10^3/uL (4.0-11.0) Red Blood Count 3.68x10^6/uL (4.30-5.70) Hemoglobin 12.2g/dL (13.0-17.5) Hematocrit 35.6% (39.0-53.0) Mean Corpuscular Volume 97fL (79-100) Mean Corpuscular Hemoglobin 33pg (25-35) Mean Corpuscular Hemoglobin Concent 34g/dL (31-37) Red Cell Distribution Width 13.8% (11.5-14.5) Platelet Count 172x10^3/uL (140-400) Neutrophils (%) (Auto) 87% (31-73) Lymphocytes (%) (Auto) 5% (24-48) Monocytes (%) (Auto) 8% (0-9) Eosinophils (%) (Auto) 0% (0-3) Basophils (%) (Auto) 1% (0-3) Neutrophils # (Auto) 7.2x10^3uL (1.8-7.7) Lymphocytes # (Auto) 0.4x10^3/uL (1.0-4.8) Monocytes # (Auto) 0.6x10^3/uL (0.0-1.1) Eosinophils # (Auto) 0.0x10^3/uL (0.0-0.7) Basophils # (Auto) 0.0x10^3/uL (0.0-0.2) Segmented Neutrophils % 86% (35-66) Lymphocytes % 8% (24-48) Monocytes % 6% (0-10) Platelet Estimate Adequate (ADEQUATE) Sodium Level 136mmol/L (136-145) 138mmol/L (136-145) Potassium Level 4.0mmol/L (3.5-5.1) 3.5mmol/L (3.5-5.1) Chloride Level 100mmol/L (98-107) 102mmol/L (98-107) Carbon Dioxide Level 28mmol/L (21-32) 26mmol/L (21-32) Anion Gap 8 (6-14) 10 (6-14) Blood Urea Nitrogen 16mg/dL (8-26) 16mg/dL (8-26) Creatinine 1.1mg/dL (0.7-1.3) 1.1mg/dL (0.7-1.3) Estimated GFR (Cockcroft-Gault) 65.1 65.1 Glucose Level 118mg/dL (70-99) 102mg/dL (70-99) Calcium Level 8.8mg/dL (8.5-10.1) 9.0mg/dL (8.5-10.1) Troponin I Quantitative < 0.017ng/mL (0.000-0.055) Urine Collection Type Unknown Urine Color Yellow Urine Clarity Clear Urine pH 8.0 Urine Specific [place] <=1.005 Urine Protein Negativemg/dL (NEG-TRACE) Urine Glucose (UA) Negativemg/dL (NEG) Urine Ketones (Stick) Negativemg/dL (NEG) Urine Blood Negative (NEG) Urine Nitrite Negative (NEG) Urine Bilirubin Negative (NEG) Urine Urobilinogen Dipstick 1.0mg/dL (0.2 mg/dL) Urine Leukocyte Esterase Negative (NEG) Urine RBC Rare/HPF (0-2) Urine WBC 0/HPF (0-4) Urine Squamous Epithelial Cells Occ/LPF Urine Bacteria 0/HPF (0-FEW) Urine Opiates Screen Pos (NEG) Urine Methadone Screen Neg (NEG) Urine Barbiturates Neg (NEG) Urine Phencyclidine Screen Neg (NEG) Urine Amphetamine/Methamphetamine Neg (NEG) Urine Benzodiazepines Screen Neg (NEG) Urine Cocaine Screen Neg (NEG) Urine Cannabinoids Screen Neg (NEG) Urine Ethyl Alcohol Neg (NEG) Nasal Screen MRSA (PCR) Negative (Negative) Test 12/11/16 04:45 White Blood Count 7.1x10^3/uL (4.0-11.0) Red Blood Count 3.55x10^6/uL (4.30-5.70) Hemoglobin 11.9g/dL (13.0-17.5) Hematocrit 35.0% (39.0-53.0) Mean Corpuscular Volume 99fL (79-100) Mean Corpuscular Hemoglobin 34pg (25-35) Mean Corpuscular Hemoglobin Concent 34g/dL (31-37) Red Cell Distribution Width 13.7% (11.5-14.5) Platelet Count 163x10^3/uL (140-400) Neutrophils (%) (Auto) 73% (31-73) Lymphocytes (%) (Auto) 13% (24-48) Monocytes (%) (Auto) 10% (0-9) Eosinophils (%) (Auto) 3% (0-3) Basophils (%) (Auto) 1% (0-3) Neutrophils # (Auto) 5.2x10^3uL (1.8-7.7) Lymphocytes # (Auto) 0.9x10^3/uL (1.0-4.8) Monocytes # (Auto) 0.7x10^3/uL (0.0-1.1) Eosinophils # (Auto) 0.2x10^3/uL (0.0-0.7) Basophils # (Auto) 0.0x10^3/uL (0.0-0.2) Laboratory Tests Test 12/11/16 04:40 12/11/16 04:45 Sodium Level 138mmol/L (136-145) Potassium Level 3.5mmol/L (3.5-5.1) Chloride Level 102mmol/L (98-107) Carbon Dioxide Level 26mmol/L (21-32) Anion Gap 10 (6-14) Blood Urea Nitrogen 16mg/dL (8-26) Creatinine 1.1mg/dL (0.7-1.3) Estimated GFR (Cockcroft-Gault) 65.1 Glucose Level 102mg/dL (70-99) Calcium Level 9.0mg/dL (8.5-10.1) White Blood Count 7.1x10^3/uL (4.0-11.0) Red Blood Count 3.55x10^6/uL (4.30-5.70) Hemoglobin 11.9g/dL (13.0-17.5) Hematocrit 35.0% (39.0-53.0) Mean Corpuscular Volume 99fL (79-100) Mean Corpuscular Hemoglobin 34pg (25-35) Mean Corpuscular Hemoglobin Concent 34g/dL (31-37) Red Cell Distribution Width 13.7% (11.5-14.5) Platelet Count 163x10^3/uL (140-400) Neutrophils (%) (Auto) 73% (31-73) Lymphocytes (%) (Auto) 13% (24-48) Monocytes (%) (Auto) 10% (0-9) Eosinophils (%) (Auto) 3% (0-3) Basophils (%) (Auto) 1% (0-3) Neutrophils # (Auto) 5.2x10^3uL (1.8-7.7) Lymphocytes # (Auto) 0.9x10^3/uL (1.0-4.8) Monocytes # (Auto) 0.7x10^3/uL (0.0-1.1) Eosinophils # (Auto) 0.2x10^3/uL (0.0-0.7) Basophils # (Auto) 0.0x10^3/uL (0.0-0.2) Medications Active Scripts Medications Dose Route/Sig Days Date Category Alum-Mag Hydroxide-Simeth Liq (Mag Hydrox/Al Hydrox/Simeth) 360 Ml Oral.susp 360 Ml PO PRN Q4HRS PRN 12/10/16 Reported Risperidone 2 Mg Tablet 1 Tab PO QHS 12/10/16 Reported Tamsulosin Hcl 0.4 Mg Cap.er.24h 1 Cap PO DAILY 12/10/16 Reported Cyclobenzaprine Hcl 10 Mg Tablet 1 Tab PO PRN Q8HRS PRN 12/10/16 Reported Fleet Enema (Na Phos,M-B/Na Phos,Di-Ba) 133 Ml Enema 1 Each RC DAILY PRN 12/10/16 Reported Dulcolax (Bisacodyl) 10 Mg Supp.rect 10 Mg RC PRN DAILY PRN 12/10/16 Reported Milk Of Magnesia (Magnesium Hydroxide) 400 Mg/5 Ml Oral.susp 400 Mg PO DAILY PRN 12/10/16 Reported Atorvastatin Calcium 20 Mg Tablet 20 Mg PO HS 12/10/16 Reported Docusate Sodium 100 Mg Capsule 1 Cap PO BID PRN 12/10/16 Reported Calcium 500 + Vit D 200 Caplet (Calcium Carbonate/Vitamin D3) 1 Each Tablet 1 Each PO DAILY 12/10/16 Reported Fluoxetine Hcl 40 Mg Capsule 1 Cap PO DAILYWBKFT 12/10/16 Reported C-1000 (Ascorbic Acid) 1,000 Mg Tablet 1,000 Mg PO DAILY 12/10/16 Reported B-12 (Cyanocobalamin (Vitamin B-12)) 1,000 Mcg Tablet.er 1,000 Mcg PO DAILY 12/10/16 Reported Omeprazole 40 Mg Capsule. 1 Cap PO DAILY 12/10/16 Reported Lamotrigine 200 Mg Tablet 1 Tab PO DAILY 12/10/16 Reported Glucosamine Chondroitin Tab (Gluc Cherry/Chondro Cherry A/Vit C/Mn) 1 Each Tablet 1 Each PO DAILY 12/10/16 Reported Thera-M Tablet (Multivits,Ca,Minerals/Iron/Fa) 1 Each Tablet 1 Each PO 12/10/16 Reported Lidoderm (Lidocaine) 700 Mg Adh..patch 1 Patch TP DAILY 12/10/16 Reported Meloxicam 7.5 Mg Tablet 1 Tab PO BID 12/10/16 Reported Oxybutynin Chloride 5 Mg/5 Ml Syrup 5 Mg PO TID 12/10/16 Reported Clonazepam 2 Mg Tablet 1 Tab PO HS 12/10/16 Reported Morphine Sulfate 15 Mg Tablet 15 Mg PO PRN Q4HRS PRN 12/10/16 Reported Gabapentin 300 Mg Capsule 300 Mg PO HS 12/10/16 Reported Gabapentin 100 Mg Capsule 200 Mg PO DAILY 12/10/16 Reported Duoneb 0.5-3(2.5) Mg/3 Ml (Albuterol/Ipratropium) 3 Ml Ampul.neb 3 Ml NEB PRN Q4HRS PRN 12/10/[address] reviewed. - Exam is positive for pulmonary embolism in the left upper lobe segmental arteries, some of this thrombus is eccentrically positioned and could be chronic. Correlate with exam findings. - No evidence of heart strain. - Ectasia of ascending aorta. Impression . IMPRESSION: 1. Pulmonary embolism. 2. Abnormal CT of the chest. 3. Gastroesophageal reflux disease. 4. Hypertension. 5. Anemia. 6. Bipolar and anxiety. 7. History of cerebrovascular accident. 8. Hip pain. Plan . PLAN AND RECOMMENDATION: 1. titrate fio2 to keep 02 saturation 92%. 2. Lovenox 1 mg per kilogram b.i.d. subQ. 3. lower extremity venous Doppler, neg. 4. Protonix for gastroesophageal reflux disease. 5. Monitor respiratory status very closely. 6. Monitor for bleeding while the patient is on anticoagulation. 7. May consider Coumadin versus Xarelto. 8. The findings and recommendations were discussed with the patient. He understood and agrees to proceed with the plan. I have answered all of his questions. ADELE FARIAS MD Dec 11, 2016 10:47
--- NOTE | 2016-12-11 11:36 | PDOC ---
PROGRESS NOTES Chief Complaint Chief Complaint 1. Subacute eccentric PE 2. Bruising left side possibly fall 3. Depression NOS 4. Chronic lumbago 5. Bilateral hip pain L> R 6. MOderate PCM 7. Anemia of chronic dse History of Present Illness History of Present Illness doing ok CLaims it's nerve pain, not back pain RN relays back pain to me Pt yesterday told me hip pain Hip xrays neg even for DJD Physiatry on board, not yet seen To start coumadin per pulmo recs NO desats or sign of respi compromise with the eccentric subacute pE Although [facility] resident, he gets it quite well re coumadin x 6 mos and the need to monitor COumadin has been chosen instead of eliquis bec of REVERSIBILITY of coumadin, He had a recent brain bleed after being placed on plavix PLAn: Start coumadin per pharmacy now Goal INR 2-3 AC x 6 moS await physiatry Will go back to [facility] upon dc PT/INR daily Vitals Vitals Vital Signs Date Time Temp Pulse Resp B/P Pulse Ox O2 Delivery O2 Flow Rate FiO2 12/11/16 10:46 97.6 61 18 102/63 93 Nasal Cannula 2.0 97.6 Physical Exam General: Alert, Oriented X3, Cooperative, No acute distress Lungs: Clear Abdomen: Normal bowel sounds, Soft, No tenderness, No hepatosplenomegaly, No masses Extremities: Other (bruise Left upper arm and left side) Skin: Other (as above) Labs LABS Laboratory Tests Test 12/11/16 04:40 12/11/16 04:45 Sodium Level 138mmol/L (136-145) Potassium Level 3.5mmol/L (3.5-5.1) Chloride Level 102mmol/L (98-107) Carbon Dioxide Level 26mmol/L (21-32) Anion Gap 10 (6-14) Blood Urea Nitrogen 16mg/dL (8-26) Creatinine 1.1mg/dL (0.7-1.3) Estimated GFR (Cockcroft-Gault) 65.1 Glucose Level 102mg/dL (70-99) Calcium Level 9.0mg/dL (8.5-10.1) White Blood Count 7.1x10^3/uL (4.0-11.0) Red Blood Count 3.55x10^6/uL (4.30-5.70) Hemoglobin 11.9g/dL (13.0-17.5) Hematocrit 35.0% (39.0-53.0) Mean Corpuscular Volume 99fL (79-100) Mean Corpuscular Hemoglobin 34pg (25-35) Mean Corpuscular Hemoglobin Concent 34g/dL (31-37) Red Cell Distribution Width 13.7% (11.5-14.5) Platelet Count 163x10^3/uL (140-400) Neutrophils (%) (Auto) 73% (31-73) Lymphocytes (%) (Auto) 13% (24-48) Monocytes (%) (Auto) 10% (0-9) Eosinophils (%) (Auto) 3% (0-3) Basophils (%) (Auto) 1% (0-3) Neutrophils # (Auto) 5.2x10^3uL (1.8-7.7) Lymphocytes # (Auto) 0.9x10^3/uL (1.0-4.8) Monocytes # (Auto) 0.7x10^3/uL (0.0-1.1) Eosinophils # (Auto) 0.2x10^3/uL (0.0-0.7) Basophils # (Auto) 0.0x10^3/uL (0.0-0.2) Review of Systems Review of Systems back pain, hip pain, all else is neg Assessment and Plan Assessmemt and Plan Problems Medical Problems: (1) Pulmonary embolism Status: Acute Problems: Comment Review of Relevant I have reviewed the following items zeynep (where applicable) has been applied. Labs Laboratory Tests Test 12/09/16 22:30 12/09/16 22:48 12/10/16 01:50 12/11/16 04:40 White Blood Count 8.4x10^3/uL (4.0-11.0) Red Blood Count 3.68x10^6/uL (4.30-5.70) Hemoglobin 12.2g/dL (13.0-17.5) Hematocrit 35.6% (39.0-53.0) Mean Corpuscular Volume 97fL (79-100) Mean Corpuscular Hemoglobin 33pg (25-35) Mean Corpuscular Hemoglobin Concent 34g/dL (31-37) Red Cell Distribution Width 13.8% (11.5-14.5) Platelet Count 172x10^3/uL (140-400) Neutrophils (%) (Auto) 87% (31-73) Lymphocytes (%) (Auto) 5% (24-48) Monocytes (%) (Auto) 8% (0-9) Eosinophils (%) (Auto) 0% (0-3) Basophils (%) (Auto) 1% (0-3) Neutrophils # (Auto) 7.2x10^3uL (1.8-7.7) Lymphocytes # (Auto) 0.4x10^3/uL (1.0-4.8) Monocytes # (Auto) 0.6x10^3/uL (0.0-1.1) Eosinophils # (Auto) 0.0x10^3/uL (0.0-0.7) Basophils # (Auto) 0.0x10^3/uL (0.0-0.2) Segmented Neutrophils % 86% (35-66) Lymphocytes % 8% (24-48) Monocytes % 6% (0-10) Platelet Estimate Adequate (ADEQUATE) Sodium Level 136mmol/L (136-145) 138mmol/L (136-145) Potassium Level 4.0mmol/L (3.5-5.1) 3.5mmol/L (3.5-5.1) Chloride Level 100mmol/L (98-107) 102mmol/L (98-107) Carbon Dioxide Level 28mmol/L (21-32) 26mmol/L (21-32) Anion Gap 8 (6-14) 10 (6-14) Blood Urea Nitrogen 16mg/dL (8-26) 16mg/dL (8-26) Creatinine 1.1mg/dL (0.7-1.3) 1.1mg/dL (0.7-1.3) Estimated GFR (Cockcroft-Gault) 65.1 65.1 Glucose Level 118mg/dL (70-99) 102mg/dL (70-99) Calcium Level 8.8mg/dL (8.5-10.1) 9.0mg/dL (8.5-10.1) Troponin I Quantitative < 0.017ng/mL (0.000-0.055) Urine Collection Type Unknown Urine Color Yellow Urine Clarity Clear Urine pH 8.0 Urine Specific [place] <=1.005 Urine Protein Negativemg/dL (NEG-TRACE) Urine Glucose (UA) Negativemg/dL (NEG) Urine Ketones (Stick) Negativemg/dL (NEG) Urine Blood Negative (NEG) Urine Nitrite Negative (NEG) Urine Bilirubin Negative (NEG) Urine Urobilinogen Dipstick 1.0mg/dL (0.2 mg/dL) Urine Leukocyte Esterase Negative (NEG) Urine RBC Rare/HPF (0-2) Urine WBC 0/HPF (0-4) Urine Squamous Epithelial Cells Occ/LPF Urine Bacteria 0/HPF (0-FEW) Urine Opiates Screen Pos (NEG) Urine Methadone Screen Neg (NEG) Urine Barbiturates Neg (NEG) Urine Phencyclidine Screen Neg (NEG) Urine Amphetamine/Methamphetamine Neg (NEG) Urine Benzodiazepines Screen Neg (NEG) Urine Cocaine Screen Neg (NEG) Urine Cannabinoids Screen Neg (NEG) Urine Ethyl Alcohol Neg (NEG) Nasal Screen MRSA (PCR) Negative (Negative) Test 12/11/16 04:45 White Blood Count 7.1x10^3/uL (4.0-11.0) Red Blood Count 3.55x10^6/uL (4.30-5.70) Hemoglobin 11.9g/dL (13.0-17.5) Hematocrit 35.0% (39.0-53.0) Mean Corpuscular Volume 99fL (79-100) Mean Corpuscular Hemoglobin 34pg (25-35) Mean Corpuscular Hemoglobin Concent 34g/dL (31-37) Red Cell Distribution Width 13.7% (11.5-14.5) Platelet Count 163x10^3/uL (140-400) Neutrophils (%) (Auto) 73% (31-73) Lymphocytes (%) (Auto) 13% (24-48) Monocytes (%) (Auto) 10% (0-9) Eosinophils (%) (Auto) 3% (0-3) Basophils (%) (Auto) 1% (0-3) Neutrophils # (Auto) 5.2x10^3uL (1.8-7.7) Lymphocytes # (Auto) 0.9x10^3/uL (1.0-4.8) Monocytes # (Auto) 0.7x10^3/uL (0.0-1.1) Eosinophils # (Auto) 0.2x10^3/uL (0.0-0.7) Basophils # (Auto) 0.0x10^3/uL (0.0-0.2) Laboratory Tests Test 12/11/16 04:40 12/11/16 04:45 Sodium Level 138mmol/L (136-145) Potassium Level 3.5mmol/L (3.5-5.1) Chloride Level 102mmol/L (98-107) Carbon Dioxide Level 26mmol/L (21-32) Anion Gap 10 (6-14) Blood Urea Nitrogen 16mg/dL (8-26) Creatinine 1.1mg/dL (0.7-1.3) Estimated GFR (Cockcroft-Gault) 65.1 Glucose Level 102mg/dL (70-99) Calcium Level 9.0mg/dL (8.5-10.1) White Blood Count 7.1x10^3/uL (4.0-11.0) Red Blood Count 3.55x10^6/uL (4.30-5.70) Hemoglobin 11.9g/dL (13.0-17.5) Hematocrit 35.0% (39.0-53.0) Mean Corpuscular Volume 99fL (79-100) Mean Corpuscular Hemoglobin 34pg (25-35) Mean Corpuscular Hemoglobin Concent 34g/dL (31-37) Red Cell Distribution Width 13.7% (11.5-14.5) Platelet Count 163x10^3/uL (140-400) Neutrophils (%) (Auto) 73% (31-73) Lymphocytes (%) (Auto) 13% (24-48) Monocytes (%) (Auto) 10% (0-9) Eosinophils (%) (Auto) 3% (0-3) Basophils (%) (Auto) 1% (0-3) Neutrophils # (Auto) 5.2x10^3uL (1.8-7.7) Lymphocytes # (Auto) 0.9x10^3/uL (1.0-4.8) Monocytes # (Auto) 0.7x10^3/uL (0.0-1.1) Eosinophils # (Auto) 0.2x10^3/uL (0.0-0.7) Basophils # (Auto) 0.0x10^3/uL (0.0-0.2) Medications Current Medications Iohexol (Omnipaque 300 Mg/ml) 75 ml 1X ONCE IV ; Start 12/09/16 at 23:00; Stop 12/09/16 at 23:01; Status DC Info (Do NOT chart on this entry -- for MONITORING) 1 each PRN DAILY PRN MC SEE COMMENTS; Start 12/09/16 at 23:15; Stop 12/11/16 at 23:14 Enoxaparin Sodium (Lovenox 80mg Syringe) 80 mg 1X ONCE SQ Last administered on 12/10/16 00:43; Start 12/10/16 at 00:15; Stop 12/10/16 at 00:16; Status DC Ondansetron HCl 4 mg 4 mg PRN Q8HRS PRN IV NAUSEA/VOMITING; Start 12/10/16 at 00:15; Stop 12/10/16 at 08:59; Status DC Sodium Chloride (Iv Sodium Chloride 0.9% 1000ml Bag) 1,000 ml @ 100 mls/hr Q10H IV Last administered on 12/10/16 04:05; Start 12/10/16 at 00:15; Stop at 18:53; Status DC Acetaminophen (Tylenol) 650 mg PRN Q4HRS PRN PO FEVER; Start 12/10/16 at 00:15 ; Stop 12/11/16 at 00:14; Status DC Ondansetron HCl (Zofran) 4 mg PRN Q6HRS PRN IV NAUSEA/VOMITING; Start 12/10/16 at 08:56 Enoxaparin Sodium (Lovenox 80mg Syringe) 80 mg Q12HR SQ Last administered on 10:06; Start 12/10/16 at 09:30 Atorvastatin Calcium (Lipitor) 20 mg HS PO Last administered on 12/10/16 21:37 ; Start 12/10/16 at 21:00 Bisacodyl (Dulcolax Supp) 10 mg PRN DAILY PRN RC CONSTIPATION; Start 12/10/16 at 09:00 Calcium/Vitamin D (Oscal D 500mg/ 200uts) 1 tab DAILY PO Last administered on 10:07; Start 12/10/16 at 10:00 Cyclobenzaprine HCl (Flexeril) 10 mg PRN Q8HRS PRN PO MUSCLE SPASMS; Start at 09:00 Docusate Sodium (Colace) 100 mg PRN BID PRN PO CONSTIPATION Last administered on 12/11/16 10:06; Start 12/10/16 at 09:00 Gabapentin (Neurontin) 200 mg DAILY PO Last administered on 12/11/16 10:09; Start 12/10/16 at 09:30 Gabapentin (Neurontin) 300 mg HS PO Last administered on 12/10/16 21:37; Start 12/10/16 at 21:00 Albuterol Sulfate (Ventolin Neb Soln) 2.5 mg PRN Q4HRS PRN NEB SHORTNESS OF BREATH; Start 12/10/16 at 09:00 Lidocaine (Lidoderm) 1 patch DAILY TP Last administered on 12/11/16 10:06; Start 12/10/16 at 09:30 Magnesium Hydroxide (Milk Of Magnesia) 400 mg PRN DAILY PRN PO CONSTIPATION; Start 12/10/16 at 09:00 Morphine Sulfate (Morphine Ir) 15 mg PRN Q4HRS PRN PO PAIN SEVERE Last administered on 12/11/16 05:49; Start 12/10/16 at 09:00 Multivitamins (Thera M Plus) 1 tab DAILY PO Last administered on 12/11/16 10: 07; Start 12/10/16 at 09:30 Sodium Biphosphate/ Sodium Phosphate (Fleet Adult) 133 ml PRN DAILY PRN RC CONSTIPATION; Start 12/10/16 at 09:00 Tamsulosin HCl (Flomax) 0.4 mg DAILY PO Last administered on 12/11/16 10:06; Start 12/10/16 at 09:30 Ascorbic Acid (Vitamin C) 1,000 mg DAILY PO Last administered on 12/11/16 10: 09; Start 12/10/16 at 10:00 Clonazepam (Klonopin) 2 mg QHS PO Last administered on 12/10/16 21:37; Start 12/10/16 at 21:00 Cyanocobalamin (Vitamin B-12) 1,000 mcg DAILY PO Last administered on 10:07; Start 12/10/16 at 09:30 Fluoxetine HCl (Prozac) 40 mg DAILY PO Last administered on 12/11/16 10:06; Start 12/10/16 at 09:30 Non-Formulary Medication 1 each DAILY PO ; Start 12/10/16 at 09:00; Status UNV Lamotrigine (LaMICtal) 200 mg DAILY PO Last administered on 12/11/16 10:07; Start 12/10/16 at 09:30 Al Hydroxide/Mg Hydroxide (Mylanta Plus Xs) 30 ml PRN Q2HR PRN PO CONSTIPATION ; Start 12/10/16 at 09:30 Pantoprazole Sodium (Protonix) 40 mg DAILYAC PO Last administered on 12/11/16 10:08; Start 12/10/16 at 09:30 Oxybutynin Chloride (Ditropan) 5 mg [id number] PO Last administered on 12/11/16 10 :08; Start 12/10/16 at 09:30 Risperidone (Risperdal) 2 mg QHS PO Last administered on 12/10/16 21:36; Start 12/10/16 at 21:00 Info (Anti-Coagulation Monitoring By Pharmacy) 1 each PRN DAILY PRN MC SEE COMMENTS; Start 12/10/16 at 09:15 Warfarin Sodium (Coumadin Per Pharmacy) 1 each PRN DAILY PRN MC SEE COMMENTS; Start 12/11/16 at 11:30 Active Scripts Active Reported Alum-Mag Hydroxide-Simeth Liq (Mag Hydrox/Al Hydrox/Simeth) 360 Ml Oral.susp 360 Ml PO PRN Q4HRS PRN Risperidone 2 Mg Tablet 1 Tab PO QHS Tamsulosin Hcl 0.4 Mg Cap.er.24h 1 Cap PO DAILY Cyclobenzaprine Hcl 10 Mg Tablet 1 Tab PO PRN Q8HRS PRN Fleet Enema (Na Phos,M-B/Na Phos,Di-Ba) 133 Ml Enema 1 Each RC DAILY PRN Dulcolax (Bisacodyl) 10 Mg Supp.rect 10 Mg RC PRN DAILY PRN Milk Of Magnesia (Magnesium Hydroxide) 400 Mg/5 Ml Oral.susp 400 Mg PO DAILY PRN Atorvastatin Calcium 20 Mg Tablet 20 Mg PO HS Docusate Sodium 100 Mg Capsule 1 Cap PO BID PRN Calcium 500 + Vit D 200 Caplet (Calcium Carbonate/Vitamin D3) 1 Each Tablet 1 Each PO DAILY Fluoxetine Hcl 40 Mg Capsule 1 Cap PO DAILYWBKFT C-1000 (Ascorbic Acid) 1,000 Mg Tablet 1,000 Mg PO DAILY B-12 (Cyanocobalamin (Vitamin B-12)) 1,000 Mcg Tablet.er 1,000 Mcg PO DAILY Omeprazole 40 Mg Capsule. 1 Cap PO DAILY Lamotrigine 200 Mg Tablet 1 Tab PO DAILY Glucosamine Chondroitin Tab (Gluc Cherry/Chondro Cherry A/Vit C/Mn) 1 Each Tablet 1 Each PO DAILY Thera-M Tablet (Multivits,Ca,Minerals/Iron/Fa) 1 Each Tablet 1 Each PO Lidoderm (Lidocaine) 700 Mg Adh..patch 1 Patch TP DAILY Meloxicam 7.5 Mg Tablet 1 Tab PO BID Oxybutynin Chloride 5 Mg/5 Ml Syrup 5 Mg PO TID Clonazepam 2 Mg Tablet 1 Tab PO HS Morphine Sulfate 15 Mg Tablet 15 Mg PO PRN Q4HRS PRN Gabapentin 300 Mg Capsule 300 Mg PO HS Gabapentin 100 Mg Capsule 200 Mg PO DAILY Duoneb 0.5-3(2.5) Mg/3 Ml (Albuterol/Ipratropium) 3 Ml Ampul.neb 3 Ml NEB PRN Q4HRS PRN Vitals/I & O Vital Sign - Last 24 Hours 12/10/16 12/10/16 12/10/16 12/10/16 14:15 14:45 19:34 20:00 Temp 98.3 98.1 98.3 98.1 Pulse 71 66 Resp 19 20 B/P 131/83 116/61 Pulse Ox 90 94 91 O2 Delivery Room Air Room Air Room Air Nasal Cannula O2 Flow Rate 2.0 12/10/16 12/11/16 12/11/16 12/11/16 23:31 02:11 05:49 07:00 Temp 98.4 98.1 98.2 98.4 98.1 98.2 Pulse 62 66 63 Resp 18 18 18 18 B/P 131/82 129/78 143/85 Pulse Ox 95 95 95 95 O2 Delivery Nasal Cannula Nasal Cannula Nasal Cannula Nasal Cannula O2 Flow Rate 2.0 2.0 2.0 2.0 12/11/16 12/11/16 12/11/16 07:35 07:35 10:46 Temp 97.6 97.6 Pulse 61 Resp 18 18 B/P 102/63 Pulse Ox 95 93 O2 Delivery Nasal Cannula Nasal Cannula Nasal Cannula O2 Flow Rate 2.0 2.0 2.0 Intake and Output 12/10/16 12/10/16 12/11/16 15:00 23:00 07:00 Intake Total 650 ml 540 ml Output Total 950 ml 325 ml 450 ml Balance -950 ml 325 ml 90 ml RALPH BUSBY MD Dec 11, 2016 11:36
[2016-12-11 15:00] VITALS: BP 118/67
[2016-12-11 15:59] LABS: INR 1.2 (0.8-1.1); PROTHROMBIN TIME PATIENT 14.2 SEC (11.7-14.0)
[2016-12-11] MEDS ORDERED: WARFARIN 5 MG TABLET. PO ONE (16:30)
[2016-12-11 19:52] VITALS: BP 116/64
[2016-12-11] MEDS: risperiDONE 1 MG TABLET. PO SCH (21:01)
[2016-12-11] MEDS: CLONAZEPAM 1 MG TABLET PO SCH (21:01)
[2016-12-11] MEDS: ATORVASTATIN CALCIUM 20 MG TABLET PO SCH (21:02)
[2016-12-11] MEDS: GABAPENTIN 300 MG CAPSULE. PO SCH (21:07)
[2016-12-11 22:50] VITALS: BP 114/66
[2016-12-12 03:05] VITALS: BP 95/60
[2016-12-12 05:11] LABS: INR 1.1 (0.8-1.1); PROTHROMBIN TIME PATIENT 13.8 SEC (11.7-14.0)
[2016-12-12 07:00] VITALS: BP 107/63
[2016-12-12] MEDS: CYANOCOBALAMIN (VITAMIN B-12) 1,000 MCG TABLET. PO SCH (10:14)
[2016-12-12] MEDS: PANTOPRAZOLE 40 MG TABLET. PO SCH (10:14)
[2016-12-12] MEDS: OXYBUTYNIN CHLORIDE 5 MG TABLET PO SCH ×3 (10:14→21:40)
[2016-12-12] MEDS: FLUOXETINE HCL 20 MG CAPSULE PO SCH (10:14)
[2016-12-12] MEDS: ASCORBIC ACID 500 MG TABLET PO SCH (10:14)
[2016-12-12] MEDS: GABAPENTIN 100 MG CAPSULE. PO SCH (10:14)
[2016-12-12] MEDS: lamoTRIgine 100 MG TABLET. PO SCH (10:15)
[2016-12-12] MEDS: MULTIVITAMIN with MINERAL TABLET. PO SCH (10:15)
[2016-12-12] MEDS: TAMSULOSIN 0.4 MG CAP.ER.24H. PO SCH (10:15)
[2016-12-12] MEDS: CALCIUM CARB/VIT D3 500/200 TABLET. PO SCH (10:15)
[2016-12-12] MEDS: ENOXAPARIN ** NOTE DOSE ** SYRINGE SQ SCH ×2 (10:17→21:41)
[2016-12-12] MEDS: LIDOCAINE (700MG/PATCH) PATCH. TP SCH (10:17)
--- NOTE | 2016-12-12 10:43 | PDOC ---
PULMONARY PROGRESS NOTES Subjective no sob, cough, cp, has leg and back pain Vitals Vital Signs Date Time Temp Pulse Resp B/P Pulse Ox O2 Delivery O2 Flow Rate FiO2 12/12/16 08:00 Nasal Cannula 2.0 12/12/16 07:00 97.6 61 18 107/63 93 97.6 Comments ros as mentioned as above other sys otherwise neg ROS: No Nausea, No Chest Pain, No Abdominal Pain, No Increase Cough General: Alert, Oriented X4 HEENT: Other (nc at perrl, nose clear) Lungs: Clear Cardiovascular: S1, S2 Abdomen: Soft, Non-tender Neuro Exam: Alert, Oriented Extremities: No Edema Skin: Warm Labs Laboratory Tests Test 12/11/16 04:40 12/11/16 04:45 12/11/16 15:25 12/12/16 04:03 Sodium Level 138mmol/L (136-145) Potassium Level 3.5mmol/L (3.5-5.1) Chloride Level 102mmol/L (98-107) Carbon Dioxide Level 26mmol/L (21-32) Anion Gap 10 (6-14) Blood Urea Nitrogen 16mg/dL (8-26) Creatinine 1.1mg/dL (0.7-1.3) Estimated GFR (Cockcroft-Gault) 65.1 Glucose Level 102mg/dL (70-99) Calcium Level 9.0mg/dL (8.5-10.1) White Blood Count 7.1x10^3/uL (4.0-11.0) Red Blood Count 3.55x10^6/uL (4.30-5.70) Hemoglobin 11.9g/dL (13.0-17.5) Hematocrit 35.0% (39.0-53.0) Mean Corpuscular Volume 99fL (79-100) Mean Corpuscular Hemoglobin 34pg (25-35) Mean Corpuscular Hemoglobin Concent 34g/dL (31-37) Red Cell Distribution Width 13.7% (11.5-14.5) Platelet Count 163x10^3/uL (140-400) Neutrophils (%) (Auto) 73% (31-73) Lymphocytes (%) (Auto) 13% (24-48) Monocytes (%) (Auto) 10% (0-9) Eosinophils (%) (Auto) 3% (0-3) Basophils (%) (Auto) 1% (0-3) Neutrophils # (Auto) 5.2x10^3uL (1.8-7.7) Lymphocytes # (Auto) 0.9x10^3/uL (1.0-4.8) Monocytes # (Auto) 0.7x10^3/uL (0.0-1.1) Eosinophils # (Auto) 0.2x10^3/uL (0.0-0.7) Basophils # (Auto) 0.0x10^3/uL (0.0-0.2) Prothrombin Time 14.2SEC (11.7-14.0) 13.8SEC (11.7-14.0) Prothromb Time International Ratio 1.2 (0.8-1.1) 1.1 (0.8-1.1) Laboratory Tests Test 12/11/16 15:25 12/12/16 04:03 Prothrombin Time 14.2SEC (11.7-14.0) 13.8SEC (11.7-14.0) Prothromb Time International Ratio 1.2 (0.8-1.1) 1.1 (0.8-1.1) Medications Active Scripts Medications Dose Route/Sig Days Date Category Alum-Mag Hydroxide-Simeth Liq (Mag Hydrox/Al Hydrox/Simeth) 360 Ml Oral.susp 360 Ml PO PRN Q4HRS PRN 12/10/16 Reported Risperidone 2 Mg Tablet 1 Tab PO QHS 12/10/16 Reported Tamsulosin Hcl 0.4 Mg Cap.er.24h 1 Cap PO DAILY 12/10/16 Reported Cyclobenzaprine Hcl 10 Mg Tablet 1 Tab PO PRN Q8HRS PRN 12/10/16 Reported Fleet Enema (Na Phos,M-B/Na Phos,Di-Ba) 133 Ml Enema 1 Each RC DAILY PRN 12/10/16 Reported Dulcolax (Bisacodyl) 10 Mg Supp.rect 10 Mg RC PRN DAILY PRN 12/10/16 Reported Milk Of Magnesia (Magnesium Hydroxide) 400 Mg/5 Ml Oral.susp 400 Mg PO DAILY PRN 12/10/16 Reported Atorvastatin Calcium 20 Mg Tablet 20 Mg PO HS 12/10/16 Reported Docusate Sodium 100 Mg Capsule 1 Cap PO BID PRN 12/10/16 Reported Calcium 500 + Vit D 200 Caplet (Calcium Carbonate/Vitamin D3) 1 Each Tablet 1 Each PO DAILY 12/10/16 Reported Fluoxetine Hcl 40 Mg Capsule 1 Cap PO DAILYWBKFT 12/10/16 Reported C-1000 (Ascorbic Acid) 1,000 Mg Tablet 1,000 Mg PO DAILY 12/10/16 Reported B-12 (Cyanocobalamin (Vitamin B-12)) 1,000 Mcg Tablet.er 1,000 Mcg PO DAILY 12/10/16 Reported Omeprazole 40 Mg Capsule.dr 1 Cap PO DAILY 12/10/16 Reported Lamotrigine 200 Mg Tablet 1 Tab PO DAILY 12/10/16 Reported Glucosamine Chondroitin Tab (Gluc Cherry/Chondro Cherry A/Vit C/Mn) 1 Each Tablet 1 Each PO DAILY 12/10/16 Reported Thera-M Tablet (Multivits,Ca,Minerals/Iron/Fa) 1 Each Tablet 1 Each PO 12/10/16 Reported Lidoderm (Lidocaine) 700 Mg Adh..patch 1 Patch TP DAILY 12/10/16 Reported Meloxicam 7.5 Mg Tablet 1 Tab PO BID 12/10/16 Reported Oxybutynin Chloride 5 Mg/5 Ml Syrup 5 Mg PO TID 12/10/16 Reported Clonazepam 2 Mg Tablet 1 Tab PO HS 12/10/16 Reported Morphine Sulfate 15 Mg Tablet 15 Mg PO PRN Q4HRS PRN 12/10/16 Reported Gabapentin 300 Mg Capsule 300 Mg PO HS 12/10/16 Reported Gabapentin 100 Mg Capsule 200 Mg PO DAILY 12/10/16 Reported Duoneb 0.5-3(2.5) Mg/3 Ml (Albuterol/Ipratropium) 3 Ml Ampul.neb 3 Ml NEB PRN Q4HRS PRN 12/10/[address] reviewed. - Exam is positive for pulmonary embolism in the left upper lobe segmental arteries, some of this thrombus is eccentrically positioned and could be chronic. Correlate with exam findings. - No evidence of heart strain. - Ectasia of ascending aorta. Impression . Small JESSICA pulmonary embolism Dyspnea due to above,resolved left hip pain and immobilization as risk factor for PE Plan . Continue Lovenox start Coumadin 3 months of AC, provider risk factors are resolved. d/w IVAN ANDERS MD Dec 12, 2016 10:43
--- NOTE | 2016-12-12 10:49 | PDOC ---
PROGRESS NOTES Chief Complaint Chief Complaint Assessment: 1. Subacute eccentric PE 2. Bruising left side possibly fall 3. Depression NOS 4. Chronic lumbago 5. Bilateral hip pain L> R 6. Moderate PCM 7. Anemia of chronic disease History of Present Illness History of Present Illness Patient was laying in the bed at the time of evaluation, was in no acute distress. Had no acute event overnight. Stated feeling better. Breathing was better, has no SOB, CP. Still complaining about hip pain, Hip x-ray showed no fracture or DJD. Bruises were noticed on right knee, left shoulder. plan of care discussed with pt. and RN. Vitals Vitals Vital Signs Date Time Temp Pulse Resp B/P Pulse Ox O2 Delivery O2 Flow Rate FiO2 12/12/16 08:00 Nasal Cannula 2.0 12/12/16 07:00 97.6 61 18 107/63 93 97.6 Physical Exam General: Alert, Oriented X3, Cooperative, No acute distress Heart: Regular rate Lungs: Clear Abdomen: Normal bowel sounds, Soft, No tenderness, No hepatosplenomegaly, No masses Extremities: Other (bruise Left upper arm and left side, right knee ) Skin: Other (as above) Labs LABS Laboratory Tests Test 12/11/16 15:25 12/12/16 04:03 Prothrombin Time 14.2SEC (11.7-14.0) 13.8SEC (11.7-14.0) Prothromb Time International Ratio 1.2 (0.8-1.1) 1.1 (0.8-1.1) Review of Systems Review of Systems Denies fever, chills Denies SOB, CP Denies dyspnea Skin bruises notices at right knee, left shoulder Awake, alert, oriented x3 Assessment and Plan Assessmemt and Plan Assessment: 1. Subacute eccentric PE 2. Bruising left side possibly fall 3. Depression NOS 4. Chronic lumbago 5. Bilateral hip pain L> R 6. Moderate PCM 7. Anemia of chronic disease PLAN: Probable discharge tomorrow to [facility] Continue coumadin per pharmacy Goal INR 2-3 AC x 6 moS Recheck labs in AM PT/INR daily D/w pt. and RN Appreciate subspecialities inputs and recommendations Problems Medical Problems: (1) Pulmonary embolism Status: Acute Problems: Comment Review of Relevant I have reviewed the following items zeynep (where applicable) has been applied. Labs Laboratory Tests Test 12/11/16 04:40 12/11/16 04:45 12/11/16 15:25 12/12/16 04:03 Sodium Level 138mmol/L (136-145) Potassium Level 3.5mmol/L (3.5-5.1) Chloride Level 102mmol/L (98-107) Carbon Dioxide Level 26mmol/L (21-32) Anion Gap 10 (6-14) Blood Urea Nitrogen 16mg/dL (8-26) Creatinine 1.1mg/dL (0.7-1.3) Estimated GFR (Cockcroft-Gault) 65.1 Glucose Level 102mg/dL (70-99) Calcium Level 9.0mg/dL (8.5-10.1) White Blood Count 7.1x10^3/uL (4.0-11.0) Red Blood Count 3.55x10^6/uL (4.30-5.70) Hemoglobin 11.9g/dL (13.0-17.5) Hematocrit 35.0% (39.0-53.0) Mean Corpuscular Volume 99fL (79-100) Mean Corpuscular Hemoglobin 34pg (25-35) Mean Corpuscular Hemoglobin Concent 34g/dL (31-37) Red Cell Distribution Width 13.7% (11.5-14.5) Platelet Count 163x10^3/uL (140-400) Neutrophils (%) (Auto) 73% (31-73) Lymphocytes (%) (Auto) 13% (24-48) Monocytes (%) (Auto) 10% (0-9) Eosinophils (%) (Auto) 3% (0-3) Basophils (%) (Auto) 1% (0-3) Neutrophils # (Auto) 5.2x10^3uL (1.8-7.7) Lymphocytes # (Auto) 0.9x10^3/uL (1.0-4.8) Monocytes # (Auto) 0.7x10^3/uL (0.0-1.1) Eosinophils # (Auto) 0.2x10^3/uL (0.0-0.7) Basophils # (Auto) 0.0x10^3/uL (0.0-0.2) Prothrombin Time 14.2SEC (11.7-14.0) 13.8SEC (11.7-14.0) Prothromb Time International Ratio 1.2 (0.8-1.1) 1.1 (0.8-1.1) Laboratory Tests Test 12/11/16 15:25 12/12/16 04:03 Prothrombin Time 14.2SEC (11.7-14.0) 13.8SEC (11.7-14.0) Prothromb Time International Ratio 1.2 (0.8-1.1) 1.1 (0.8-1.1) Medications Current Medications Iohexol (Omnipaque 300 Mg/ml) 75 ml 1X ONCE IV ; Start 12/09/16 at 23:00; Stop 12/09/16 at 23:01; Status DC Info (Do NOT chart on this entry -- for MONITORING) 1 each PRN DAILY PRN MC SEE COMMENTS; Start 12/09/16 at 23:15; Stop 12/11/16 at 23:14; Status DC Enoxaparin Sodium (Lovenox 80mg Syringe) 80 mg 1X ONCE SQ Last administered on 12/10/16 00:43; Start 12/10/16 at 00:15; Stop 12/10/16 at 00:16; Status DC Ondansetron HCl 4 mg 4 mg PRN Q8HRS PRN IV NAUSEA/VOMITING; Start 12/10/16 at 00:15; Stop 12/10/16 at 08:59; Status DC Sodium Chloride (Iv Sodium Chloride 0.9% 1000ml Bag) 1,000 ml @ 100 mls/hr Q10H IV Last administered on 12/10/16 04:05; Start 12/10/16 at 00:15; Stop at 18:53; Status DC Acetaminophen (Tylenol) 650 mg PRN Q4HRS PRN PO FEVER; Start 12/10/16 at 00:15 ; Stop 12/11/16 at 00:14; Status DC Ondansetron HCl (Zofran) 4 mg PRN Q6HRS PRN IV NAUSEA/VOMITING; Start 12/10/16 at 08:56 Enoxaparin Sodium (Lovenox 80mg Syringe) 80 mg Q12HR SQ Last administered on 10:17; Start 12/10/16 at 09:30 Atorvastatin Calcium (Lipitor) 20 mg HS PO Last administered on 12/11/16 21:02 ; Start 12/10/16 at 21:00 Bisacodyl (Dulcolax Supp) 10 mg PRN DAILY PRN RC CONSTIPATION; Start 12/10/16 at 09:00 Calcium/Vitamin D (Oscal D 500mg/ 200uts) 1 tab DAILY PO Last administered on 10:15; Start 12/10/16 at 10:00 Cyclobenzaprine HCl (Flexeril) 10 mg PRN Q8HRS PRN PO MUSCLE SPASMS; Start at 09:00 Docusate Sodium (Colace) 100 mg PRN BID PRN PO CONSTIPATION Last administered on 12/11/16 10:06; Start 12/10/16 at 09:00 Gabapentin (Neurontin) 200 mg DAILY PO Last administered on 12/12/16 10:14; Start 12/10/16 at 09:30 Gabapentin (Neurontin) 300 mg HS PO Last administered on 12/11/16 21:07; Start 12/10/16 at 21:00 Albuterol Sulfate (Ventolin Neb Soln) 2.5 mg PRN Q4HRS PRN NEB SHORTNESS OF BREATH; Start 12/10/16 at 09:00 Lidocaine (Lidoderm) 1 patch DAILY TP Last administered on 12/12/16 10:17; Start 12/10/16 at 09:30 Magnesium Hydroxide (Milk Of Magnesia) 400 mg PRN DAILY PRN PO CONSTIPATION; Start 12/10/16 at 09:00 Morphine Sulfate (Morphine Ir) 15 mg PRN Q4HRS PRN PO PAIN SEVERE Last administered on 12/11/16 21:02; Start 12/10/16 at 09:00 Multivitamins (Thera M Plus) 1 tab DAILY PO Last administered on 12/12/16 10: 15; Start 12/10/16 at 09:30 Sodium Biphosphate/ Sodium Phosphate (Fleet Adult) 133 ml PRN DAILY PRN RC CONSTIPATION; Start 12/10/16 at 09:00 Tamsulosin HCl (Flomax) 0.4 mg DAILY PO Last administered on 12/12/16 10:15; Start 12/10/16 at 09:30 Ascorbic Acid (Vitamin C) 1,000 mg DAILY PO Last administered on 12/12/16 10: 14; Start 12/10/16 at 10:00 Clonazepam (Klonopin) 2 mg QHS PO Last administered on 12/11/16 21:01; Start 12/10/16 at 21:00 Cyanocobalamin (Vitamin B-12) 1,000 mcg DAILY PO Last administered on 10:14; Start 12/10/16 at 09:30 Fluoxetine HCl (Prozac) 40 mg DAILY PO Last administered on 12/12/16 10:14; Start 12/10/16 at 09:30 Non-Formulary Medication 1 each DAILY PO ; Start 12/10/16 at 09:00; Status UNV Lamotrigine (LaMICtal) 200 mg DAILY PO Last administered on 12/12/16 10:15; Start 12/10/16 at 09:30 Al Hydroxide/Mg Hydroxide (Mylanta Plus Xs) 30 ml PRN Q2HR PRN PO CONSTIPATION ; Start 12/10/16 at 09:30 Pantoprazole Sodium (Protonix) 40 mg DAILYAC PO Last administered on 12/12/16 10:14; Start 12/10/16 at 09:30 Oxybutynin Chloride (Ditropan) 5 mg [id number] PO Last administered on 12/12/16 10 :14; Start 12/10/16 at 09:30 Risperidone (Risperdal) 2 mg QHS PO Last administered on 12/11/16 21:01; Start 12/10/16 at 21:00 Info (Anti-Coagulation Monitoring By Pharmacy) 1 each PRN DAILY PRN MC SEE COMMENTS Last administered on 12/12/16 10:38; Start 12/10/16 at 09:15 Warfarin Sodium (Coumadin Per Pharmacy) 1 each PRN DAILY PRN MC SEE COMMENTS Last administered on 12/12/16 10:37; Start 12/11/16 at 11:30 Warfarin Sodium (Coumadin) 5 mg 1X WARF ONCE PO Last administered on 17:15; Start 12/11/16 at 16:30; Stop 12/11/16 at 16:31; Status DC Warfarin Sodium (Coumadin) 7.5 mg 1X WARF ONCE PO ; Start 12/12/16 at 16:00; Stop 12/12/16 at 16:01 Active Scripts Active Reported Alum-Mag Hydroxide-Simeth Liq (Mag Hydrox/Al Hydrox/Simeth) 360 Ml Oral.susp 360 Ml PO PRN Q4HRS PRN Risperidone 2 Mg Tablet 1 Tab PO QHS Tamsulosin Hcl 0.4 Mg Cap.er.24h 1 Cap PO DAILY Cyclobenzaprine Hcl 10 Mg Tablet 1 Tab PO PRN Q8HRS PRN Fleet Enema (Na Phos,M-B/Na Phos,Di-Ba) 133 Ml Enema 1 Each RC DAILY PRN Dulcolax (Bisacodyl) 10 Mg Supp.rect 10 Mg RC PRN DAILY PRN Milk Of Magnesia (Magnesium Hydroxide) 400 Mg/5 Ml Oral.susp 400 Mg PO DAILY PRN Atorvastatin Calcium 20 Mg Tablet 20 Mg PO HS Docusate Sodium 100 Mg Capsule 1 Cap PO BID PRN Calcium 500 + Vit D 200 Caplet (Calcium Carbonate/Vitamin D3) 1 Each Tablet 1 Each PO DAILY Fluoxetine Hcl 40 Mg Capsule 1 Cap PO DAILYWBKFT C-1000 (Ascorbic Acid) 1,000 Mg Tablet 1,000 Mg PO DAILY B-12 (Cyanocobalamin (Vitamin B-12)) 1,000 Mcg Tablet.er 1,000 Mcg PO DAILY Omeprazole 40 Mg Capsule.dr 1 Cap PO DAILY Lamotrigine 200 Mg Tablet 1 Tab PO DAILY Glucosamine Chondroitin Tab (Gluc Cherry/Chondro Cherry A/Vit C/Mn) 1 Each Tablet 1 Each PO DAILY Thera-M Tablet (Multivits,Ca,Minerals/Iron/Fa) 1 Each Tablet 1 Each PO Lidoderm (Lidocaine) 700 Mg Adh..patch 1 Patch TP DAILY Meloxicam 7.5 Mg Tablet 1 Tab PO BID Oxybutynin Chloride 5 Mg/5 Ml Syrup 5 Mg PO TID Clonazepam 2 Mg Tablet 1 Tab PO HS Morphine Sulfate 15 Mg Tablet 15 Mg PO PRN Q4HRS PRN Gabapentin 300 Mg Capsule 300 Mg PO HS Gabapentin 100 Mg Capsule 200 Mg PO DAILY Duoneb 0.5-3(2.5) Mg/3 Ml (Albuterol/Ipratropium) 3 Ml Ampul.neb 3 Ml NEB PRN Q4HRS PRN Vitals/I & O Vital Sign - Last 24 Hours 12/11/16 12/11/16 12/11/1617 10:46 15:00 17:15 18:15 Temp 97.6 97.9 97.6 97.9 Pulse 61 73 Resp 18 B/P 102/63 118/67 Pulse Ox 93 94 94 94 O2 Delivery Nasal Cannula Nasal Cannula Nasal Cannula O2 Flow Rate 2.0 2.0 2.0 12/11/16 12/11/16 12/11/16 12/11/16 19:52 20:01 21:02 22:02 Temp 97.8 97.8 Pulse 65 Resp 20 20 20 B/P 116/64 Pulse Ox 95 O2 Delivery Nasal Cannula Nasal Cannula Nasal Cannula Nasal Cannula O2 Flow Rate 2.0 2.0 2.0 2.0 12/11/16 12/12/16 12/12/16 12/12/16 22:50 03:05 07:00 08:00 Temp 97.8 97.6 97.6 97.8 97.6 97.6 Pulse 71 60 61 Resp 18 B/P 114/66 95/60 107/63 Pulse Ox 93 95 93 O2 Delivery Nasal Cannula Nasal Cannula Nasal Cannula Nasal Cannula O2 Flow Rate 2.0 2.0 2.0 2.0 Intake and Output 12/11/16 12/11/16 12/12/16 15:00 23:00 07:00 Intake Total 500 ml 980 ml Output Total 900 ml Balance -400 ml 980 ml SHREYA YI III DO Dec 12, 2016 10:49
[2016-12-12 11:00] VITALS: BP 116/72
--- NOTE | 2016-12-12 13:35 | CONS ---
DATE OF CONSULTATION: 12/10/2016 I was asked to see this 76-year-old gentleman for pulmonary embolism. HISTORY OF PRESENT ILLNESS: He has a history of 10-topy-jgfk smoking, started smoking at age 27. He denies shortness of breath, cough, and chest pain. He has nasal congestion and runny nose. He denies gastroesophageal reflux symptoms. Of note, he had elevated D-dimer from [facility] and has had multiple falls and syncopal episodes; he does not know about the details. He was on Plavix for a blood clot which affected his vision several months ago. Plavix was stopped and he had epidural injection, but he developed epidural hematoma, and he has been off Plavix for the past month. PAST MEDICAL HISTORY: Anxiety, bipolar, gastroesophageal reflux disease, hypertension, hypercholesterolemia, CVA, and chronic pain. ALLERGIES: No known drug allergies. MEDICATIONS: Currently, he is on Lovenox, Risperdal, Klonopin, Neurontin, Lipitor, vitamin C, calcium, vitamin D, Ditropan, Protonix, Lamictal, Prozac, vitamin B12, Flomax, multivitamin. SOCIAL HISTORY: He has a history of 83-uxpy-actp smoking, started smoking at the age 27. FAMILY HISTORY: Positive for hypertension. REVIEW OF SYSTEMS: As mentioned above. He has had a hip pain. Other systems, otherwise, negative. PHYSICAL EXAMINATION: GENERAL: Clinically ill-appearing gentleman. His O2 saturation is 95% on 2L. Blood pressure 164/85, temperature 98.6, respiratory rate 20, heart rate 73. HEENT: Normocephalic, atraumatic. Pupils equal, round, and reactive to light. Throat is clear. Nose is inflamed. NECK: There is no JVD, lymphadenopathy, or thyromegaly. CARDIOVASCULAR: Regular rate and rhythm. PMO is nondisplaced. CHEST: Inspection is normal. LUNGS: Clear to auscultation. There is no wheezing. ABDOMEN: Soft, bowel sounds are good. There is no mass. EXTREMITIES: There is no edema. NEUROLOGIC: Alert and oriented x 3. SKIN: Chronic changes. DIAGNOSTIC DATA: I reviewed the following lab data. CT of the chest did show pulmonary embolism in left upper lobe segmental arteries. Some of the thrombus is eccentrically positioned and could be chronic. No evidence of heart strain or ectasia of ascending aorta. 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 No evidence of free-air. WBC 8.4, hemoglobin 12.2, platelets of 172. Sodium 136, potassium 4, chloride 100, C02 of 28, glucose 118, BUN 16, creatinine 1.1. Troponin less than 0.01. IMPRESSION: 1. Pulmonary embolism. 2. Abnormal CT of the chest. 3. Gastroesophageal reflux disease. 4. Hypertension. 5. Anemia. 6. Bipolar and anxiety. 7. History of cerebrovascular accident. 8. Hip pain. PLAN AND RECOMMENDATION: 1. titrate fio2 to keep 02 saturation 92%. 2. I agree with Lovenox 1 mg per kilogram b.i.d. subQ. 3. I will order lower extremity venous Doppler. 4. Protonix for gastroesophageal reflux disease. 5. Monitor respiratory status very closely. 6. Monitor for bleeding while the patient is on anticoagulation. 7. May consider Coumadin versus Xarelto. 8. The findings and recommendations were discussed with the patient. He understood and agrees to proceed with the plan. I have answered all of his questions. Thank you very much for allowing me to participate in care of this very nice gentleman. ADELE FARIAS M.D. : BO/reji JOB#: [id number] / [id number] [id number]
[2016-12-12] MEDS: OXYCODONE ER 10 MG TAB.ER.12H. PO SCH ×2 (13:39→21:41)
--- NOTE | 2016-12-12 13:54 | RAD ---
EXAM: Chest, single view. HISTORY: Shortness of breath. COMPARISON: CT angiogram on the same date. FINDINGS: There is elevation of the right hemidiaphragm with right greater than left basilar atelectasis or scarring. There is linear right suprahilar scarring. There is no effusion or pneumothorax. The heart is normal in size. There is interposition of the colon superior to the liver. There are a few calcified granulomas. IMPRESSION: 1. Bilateral lower lobe and right suprahilar atelectasis or pleural parenchymal scarring. 2. Elevation of the right hemidiaphragm.
[2016-12-12] MEDS ORDERED: DOCUSATE SODIUM 100 MG CAPSULE. PO PRN (14:00)
[2016-12-12 15:00] VITALS: BP 115/73
[2016-12-12] MEDS ORDERED: WARFARIN 7.5 MG TABLET. PO ONE (16:00)
[2016-12-12 19:25] VITALS: BP 124/77
[2016-12-12] MEDS: CLONAZEPAM 1 MG TABLET PO SCH (21:40)
[2016-12-12] MEDS: risperiDONE 1 MG TABLET. PO SCH (21:40)
[2016-12-12] MEDS: ATORVASTATIN CALCIUM 20 MG TABLET PO SCH (21:40)
[2016-12-12] MEDS: GABAPENTIN 300 MG CAPSULE. PO SCH (21:40)
[2016-12-12 23:00] VITALS: BP 147/89
--- NOTE | 2016-12-12 23:01 | CONS ---
DATE OF CONSULTATION: 12/12/2016 ATTENDING PHYSICIAN: Dr. Hawkins. The patient was seen at the request of Dr. Hawkins for rehab evaluation. HISTORY OF PRESENT ILLNESS: This is a 76-year-old male with chronic lower back pain with lumbar radiculitis mainly on the left side right now. He had a problem going on for more than a year. He had gone through lumbar epidural steroid injections with significant help with the third injection done more than a year ago. He started having increased lower back ____ with physical therapy last month. At that time, he had one more lumbar epidural steroid injection, which did not help that much, but help ease some of the pain going on to the right leg, but it caused hematoma. He was at [facility] recently, transferred there from [facility] and he was transferred to [facility] and being treated for pulmonary emboli which may be chronic. The patient admits continued lower back pain, more so while up with pain radiating to his left lower extremity with associated numbness and tingling sensation. He denies any trouble with his bowel or bladder control. He lived alone in [facility] and had no steps to manage prior to the hospitalization recently. PHYSICAL EXAMINATION: Today revealed an elderly male. He is alert, oriented to time, place, person and circumstance and follows commands appropriately, moves all 4 extremities voluntarily where he had 4+/5 grade muscle strength except only 3+/5 grade muscle strength in right foot dorsiflexor. Deep tendon reflexes are 2+ at right knee, absent at left knee and both ankles and he had equal perception of touch and pinprick sensation bilaterally. He is independent with bed mobility. No significant tenderness to palpation of thoracic or lumbar spine or paraspinal muscles or sacroiliac joint area. Straight leg raising test is negative bilaterally. He had pain ____ range of motion on both hip joints. I have not tested his ambulation skills at present time, but he is independent with rolling from side to side without much discomfort. No significant thoracic or lumbar paraspinal muscle spasm was noted at this time. ASSESSMENT: An elderly male with chronic lower back pain with recent exacerbation and left lumbar radiculitis with radiological evidence of degenerative disk disease of lumbar vertebrae. No clinical evidence of ongoing lumbar radiculopathy, but he had residual weakness of her right foot dorsiflexor muscles and he also presents with clinical evidence of peripheral neuropathy and the patient is being treated for pulmonary emboli. RECOMMENDATION: To try him on OxyContin for better pain control and to try him with lumbar corset for use while up. Dr. Hawkins, I appreciate asking me to participate in the care of this interesting patient. I will be glad to follow him with you as needed for his rehabilitation. ISIDRO MOORE MD DR: TELMA/reji JOB#: [id number] / [id number]
[2016-12-13 03:06] VITALS: BP 116/67
[2016-12-13 04:21] LABS: BASO # 0.1 x10^3/uL (0.0-0.2); BASO % 1 % (0-3); EOS % 4 % (0-3); HEMATOCRIT 36.1 % (39.0-53.0); HEMOGLOBIN 12.5 g/dL (13.0-17.5); LYMPH # 0.9 x10^3/uL (1.0-4.8); LYMPH % 15 % (24-48); MEAN CORPUSCULAR HEMOGLOBIN 33 pg (25-35); MEAN CORPUSCULAR HGB CONC 35 g/dL (31-37); MEAN CORPUSCULAR VOLUME 96 fL (79-100); MONO % 8 % (0-9); NEUT % 72 % (31-73); PLATELET COUNT 185 x10^3/uL (140-400); RED BLOOD COUNT 3.76 x10^6/uL (4.30-5.70); RED CELL DISTRIBUTION WIDTH 13.7 % (11.5-14.5); WHITE BLOOD COUNT 6.3 x10^3/uL (4.0-11.0)
[2016-12-13 04:24] LABS: INR 1.2 (0.8-1.1); PROTHROMBIN TIME PATIENT 14.4 SEC (11.7-14.0)
[2016-12-13 04:46] LABS: CALCIUM 8.8 mg/dL (8.5-10.1); GFR 72.6; POTASSIUM 4.2 mmol/L (3.5-5.1)
[2016-12-13] MEDS: PANTOPRAZOLE 40 MG TABLET. PO SCH (06:15)
[2016-12-13 07:40] VITALS: BP 141/85
--- NOTE | 2016-12-13 08:54 | PDOC ---
PULMONARY PROGRESS NOTES Subjective no sob, cough, cp, has leg and back pain Vitals Vital Signs Date Time Temp Pulse Resp B/P Pulse Ox O2 Delivery O2 Flow Rate FiO2 12/13/16 07:40 97.5 66 10 141/85 94 Nasal Cannula 2.0 97.5 Comments ros as mentioned as above other sys otherwise neg ROS: No Nausea, No Chest Pain, No Abdominal Pain, No Increase Cough General: Alert, Oriented X4 HEENT: Other (nc at perrl, nose clear) Lungs: Clear Cardiovascular: S1, S2 Abdomen: Soft, Non-tender Neuro Exam: Alert, Oriented Extremities: No Edema Skin: Warm Labs Laboratory Tests Test 12/11/16 15:25 12/12/16 04:03 12/13/16 03:15 Prothrombin Time 14.2SEC (11.7-14.0) 13.8SEC (11.7-14.0) 14.4SEC (11.7-14.0) Prothromb Time International Ratio 1.2 (0.8-1.1) 1.1 (0.8-1.1) 1.2 (0.8-1.1) White Blood Count 6.3x10^3/uL (4.0-11.0) Red Blood Count 3.76x10^6/uL (4.30-5.70) Hemoglobin 12.5g/dL (13.0-17.5) Hematocrit 36.1% (39.0-53.0) Mean Corpuscular Volume 96fL (79-100) Mean Corpuscular Hemoglobin 33pg (25-35) Mean Corpuscular Hemoglobin Concent 35g/dL (31-37) Red Cell Distribution Width 13.7% (11.5-14.5) Platelet Count 185x10^3/uL (140-400) Neutrophils (%) (Auto) 72% (31-73) Lymphocytes (%) (Auto) 15% (24-48) Monocytes (%) (Auto) 8% (0-9) Eosinophils (%) (Auto) 4% (0-3) Basophils (%) (Auto) 1% (0-3) Neutrophils # (Auto) 4.5x10^3uL (1.8-7.7) Lymphocytes # (Auto) 0.9x10^3/uL (1.0-4.8) Monocytes # (Auto) 0.5x10^3/uL (0.0-1.1) Eosinophils # (Auto) 0.3x10^3/uL (0.0-0.7) Basophils # (Auto) 0.1x10^3/uL (0.0-0.2) Sodium Level 138mmol/L (136-145) Potassium Level 4.2mmol/L (3.5-5.1) Chloride Level 102mmol/L (98-107) Carbon Dioxide Level 29mmol/L (21-32) Anion Gap 7 (6-14) Blood Urea Nitrogen 17mg/dL (8-26) Creatinine 1.0mg/dL (0.7-1.3) Estimated GFR (Cockcroft-Gault) 72.6 Glucose Level 104mg/dL (70-99) Calcium Level 8.8mg/dL (8.5-10.1) Laboratory Tests Test 12/13/16 03:15 White Blood Count 6.3x10^3/uL (4.0-11.0) Red Blood Count 3.76x10^6/uL (4.30-5.70) Hemoglobin 12.5g/dL (13.0-17.5) Hematocrit 36.1% (39.0-53.0) Mean Corpuscular Volume 96fL (79-100) Mean Corpuscular Hemoglobin 33pg (25-35) Mean Corpuscular Hemoglobin Concent 35g/dL (31-37) Red Cell Distribution Width 13.7% (11.5-14.5) Platelet Count 185x10^3/uL (140-400) Neutrophils (%) (Auto) 72% (31-73) Lymphocytes (%) (Auto) 15% (24-48) Monocytes (%) (Auto) 8% (0-9) Eosinophils (%) (Auto) 4% (0-3) Basophils (%) (Auto) 1% (0-3) Neutrophils # (Auto) 4.5x10^3uL (1.8-7.7) Lymphocytes # (Auto) 0.9x10^3/uL (1.0-4.8) Monocytes # (Auto) 0.5x10^3/uL (0.0-1.1) Eosinophils # (Auto) 0.3x10^3/uL (0.0-0.7) Basophils # (Auto) 0.1x10^3/uL (0.0-0.2) Prothrombin Time 14.4SEC (11.7-14.0) Prothromb Time International Ratio 1.2 (0.8-1.1) Sodium Level 138mmol/L (136-145) Potassium Level 4.2mmol/L (3.5-5.1) Chloride Level 102mmol/L (98-107) Carbon Dioxide Level 29mmol/L (21-32) Anion Gap 7 (6-14) Blood Urea Nitrogen 17mg/dL (8-26) Creatinine 1.0mg/dL (0.7-1.3) Estimated GFR (Cockcroft-Gault) 72.6 Glucose Level 104mg/dL (70-99) Calcium Level 8.8mg/dL (8.5-10.1) Medications Active Scripts Medications Dose Route/Sig Days Date Category Alum-Mag Hydroxide-Simeth Liq (Mag Hydrox/Al Hydrox/Simeth) 360 Ml Oral.susp 360 Ml PO PRN Q4HRS PRN 12/10/16 Reported Risperidone 2 Mg Tablet 1 Tab PO QHS 12/10/16 Reported Tamsulosin Hcl 0.4 Mg Cap.er.24h 1 Cap PO DAILY 12/10/16 Reported Cyclobenzaprine Hcl 10 Mg Tablet 1 Tab PO PRN Q8HRS PRN 12/10/16 Reported Fleet Enema (Na Phos,M-B/Na Phos,Di-Ba) 133 Ml Enema 1 Each RC DAILY PRN 12/10/16 Reported Dulcolax (Bisacodyl) 10 Mg Supp.rect 10 Mg RC PRN DAILY PRN 12/10/16 Reported Milk Of Magnesia (Magnesium Hydroxide) 400 Mg/5 Ml Oral.susp 400 Mg PO DAILY PRN 12/10/16 Reported Atorvastatin Calcium 20 Mg Tablet 20 Mg PO HS 12/10/16 Reported Docusate Sodium 100 Mg Capsule 1 Cap PO BID PRN 12/10/16 Reported Calcium 500 + Vit D 200 Caplet (Calcium Carbonate/Vitamin D3) 1 Each Tablet 1 Each PO DAILY 12/10/16 Reported Fluoxetine Hcl 40 Mg Capsule 1 Cap PO DAILYWBKFT 12/10/16 Reported C-1000 (Ascorbic Acid) 1,000 Mg Tablet 1,000 Mg PO DAILY 12/10/16 Reported B-12 (Cyanocobalamin (Vitamin B-12)) 1,000 Mcg Tablet.er 1,000 Mcg PO DAILY 12/10/16 Reported Omeprazole 40 Mg Capsule.dr Baker Cap PO DAILY 12/10/16 Reported Lamotrigine 200 Mg Tablet 1 Tab PO DAILY 12/10/16 Reported Glucosamine Chondroitin Tab (Gluc Cherry/Chondro Cherry A/Vit C/Mn) 1 Each Tablet 1 Each PO DAILY 12/10/16 Reported Thera-M Tablet (Multivits,Ca,Minerals/Iron/Fa) 1 Each Tablet 1 Each PO 12/10/16 Reported Lidoderm (Lidocaine) 700 Mg Adh..patch 1 Patch TP DAILY 12/10/16 Reported Meloxicam 7.5 Mg Tablet 1 Tab PO BID 12/10/16 Reported Oxybutynin Chloride 5 Mg/5 Ml Syrup 5 Mg PO TID 12/10/16 Reported Clonazepam 2 Mg Tablet 1 Tab PO HS 12/10/16 Reported Morphine Sulfate 15 Mg Tablet 15 Mg PO PRN Q4HRS PRN 12/10/16 Reported Gabapentin 300 Mg Capsule 300 Mg PO HS 12/10/16 Reported Gabapentin 100 Mg Capsule 200 Mg PO DAILY 12/10/16 Reported Duoneb 0.5-3(2.5) Mg/3 Ml (Albuterol/Ipratropium) 3 Ml Ampul.neb 3 Ml NEB PRN Q4HRS PRN 12/10/[address] reviewed. - Exam is positive for pulmonary embolism in the left upper lobe segmental arteries, some of this thrombus is eccentrically positioned and could be chronic. Correlate with exam findings. - No evidence of heart strain. - Ectasia of ascending aorta. Impression . Small JESSICA pulmonary embolism Dyspnea due to above,resolved left hip pain and immobilization as risk factor for PE Plan . Continue Lovenox start Coumadin 3 months of AC, provider risk factors are resolved. d/w DOMO DEL CID MD Dec 13, 2016 08:54
[2016-12-13] MEDS: lamoTRIgine 100 MG TABLET. PO SCH (09:36)
[2016-12-13] MEDS: CALCIUM CARB/VIT D3 500/200 TABLET. PO SCH (09:36)
[2016-12-13] MEDS: CYANOCOBALAMIN (VITAMIN B-12) 1,000 MCG TABLET. PO SCH (09:36)
[2016-12-13] MEDS: GABAPENTIN 100 MG CAPSULE. PO SCH (09:36)
[2016-12-13] MEDS: MULTIVITAMIN with MINERAL TABLET. PO SCH (09:36)
[2016-12-13] MEDS: TAMSULOSIN 0.4 MG CAP.ER.24H. PO SCH (09:37)
[2016-12-13] MEDS: ASCORBIC ACID 500 MG TABLET PO SCH (09:37)
[2016-12-13] MEDS: FLUOXETINE HCL 20 MG CAPSULE PO SCH (09:37)
[2016-12-13] MEDS: ENOXAPARIN ** NOTE DOSE ** SYRINGE SQ SCH (09:37)
[2016-12-13] MEDS: OXYBUTYNIN CHLORIDE 5 MG TABLET PO SCH (09:37)
[2016-12-13] MEDS: LIDOCAINE (700MG/PATCH) PATCH. TP SCH (09:38)
[2016-12-13 10:07] VITALS: BP 130/74
[2016-12-13] MEDS: OXYCODONE ER 10 MG TAB.ER.12H. PO SCH (10:20)
--- NOTE | 2016-12-13 10:29 | PDOC ---
PROGRESS NOTES Subjective Subjective He still admits some hip pain. Objective Objective Vital Signs Date Time Temp Pulse Resp B/P Pulse Ox O2 Delivery O2 Flow Rate FiO2 12/13/16 10:20 16 Room Air 12/13/16 10:07 97.8 71 130/74 95 2.0 97.8 Intake and Output 12/13/16 07:00 Intake Total 1280 ml Output Total 1250 ml Balance 30 ml Intake Oral 1280 ml Output Urine Total 1250 ml Physical Exam Physical Exam He is comfortable sitting up in bed and continues with tenderness to palpation over sacroiliac joints bilaterally and he used lumbar corset with some help. Assessment Assessment Problems Medical Problems: (1) Pulmonary embolism Status: Acute Plan Plan of Care Agree with plans for transfer to SNF for continued care. Comment Review of Relevant I have reviewed the following items zeynep (where applicable) has been applied. Labs Laboratory Tests Test 12/11/16 15:25 12/12/16 04:03 12/13/16 03:15 Prothrombin Time 14.2SEC (11.7-14.0) 13.8SEC (11.7-14.0) 14.4SEC (11.7-14.0) Prothromb Time International Ratio 1.2 (0.8-1.1) 1.1 (0.8-1.1) 1.2 (0.8-1.1) White Blood Count 6.3x10^3/uL (4.0-11.0) Red Blood Count 3.76x10^6/uL (4.30-5.70) Hemoglobin 12.5g/dL (13.0-17.5) Hematocrit 36.1% (39.0-53.0) Mean Corpuscular Volume 96fL (79-100) Mean Corpuscular Hemoglobin 33pg (25-35) Mean Corpuscular Hemoglobin Concent 35g/dL (31-37) Red Cell Distribution Width 13.7% (11.5-14.5) Platelet Count 185x10^3/uL (140-400) Neutrophils (%) (Auto) 72% (31-73) Lymphocytes (%) (Auto) 15% (24-48) Monocytes (%) (Auto) 8% (0-9) Eosinophils (%) (Auto) 4% (0-3) Basophils (%) (Auto) 1% (0-3) Neutrophils # (Auto) 4.5x10^3uL (1.8-7.7) Lymphocytes # (Auto) 0.9x10^3/uL (1.0-4.8) Monocytes # (Auto) 0.5x10^3/uL (0.0-1.1) Eosinophils # (Auto) 0.3x10^3/uL (0.0-0.7) Basophils # (Auto) 0.1x10^3/uL (0.0-0.2) Sodium Level 138mmol/L (136-145) Potassium Level 4.2mmol/L (3.5-5.1) Chloride Level 102mmol/L (98-107) Carbon Dioxide Level 29mmol/L (21-32) Anion Gap 7 (6-14) Blood Urea Nitrogen 17mg/dL (8-26) Creatinine 1.0mg/dL (0.7-1.3) Estimated GFR (Cockcroft-Gault) 72.6 Glucose Level 104mg/dL (70-99) Calcium Level 8.8mg/dL (8.5-10.1) Laboratory Tests Test 12/13/16 03:15 White Blood Count 6.3x10^3/uL (4.0-11.0) Red Blood Count 3.76x10^6/uL (4.30-5.70) Hemoglobin 12.5g/dL (13.0-17.5) Hematocrit 36.1% (39.0-53.0) Mean Corpuscular Volume 96fL (79-100) Mean Corpuscular Hemoglobin 33pg (25-35) Mean Corpuscular Hemoglobin Concent 35g/dL (31-37) Red Cell Distribution Width 13.7% (11.5-14.5) Platelet Count 185x10^3/uL (140-400) Neutrophils (%) (Auto) 72% (31-73) Lymphocytes (%) (Auto) 15% (24-48) Monocytes (%) (Auto) 8% (0-9) Eosinophils (%) (Auto) 4% (0-3) Basophils (%) (Auto) 1% (0-3) Neutrophils # (Auto) 4.5x10^3uL (1.8-7.7) Lymphocytes # (Auto) 0.9x10^3/uL (1.0-4.8) Monocytes # (Auto) 0.5x10^3/uL (0.0-1.1) Eosinophils # (Auto) 0.3x10^3/uL (0.0-0.7) Basophils # (Auto) 0.1x10^3/uL (0.0-0.2) Prothrombin Time 14.4SEC (11.7-14.0) Prothromb Time International Ratio 1.2 (0.8-1.1) Sodium Level 138mmol/L (136-145) Potassium Level 4.2mmol/L (3.5-5.1) Chloride Level 102mmol/L (98-107) Carbon Dioxide Level 29mmol/L (21-32) Anion Gap 7 (6-14) Blood Urea Nitrogen 17mg/dL (8-26) Creatinine 1.0mg/dL (0.7-1.3) Estimated GFR (Cockcroft-Gault) 72.6 Glucose Level 104mg/dL (70-99) Calcium Level 8.8mg/dL (8.5-10.1) Medications Current Medications Iohexol (Omnipaque 300 Mg/ml) 75 ml 1X ONCE IV ; Start 12/09/16 at 23:00; Stop 12/09/16 at 23:01; Status DC Info (Do NOT chart on this entry -- for MONITORING) 1 each PRN DAILY PRN MC SEE COMMENTS; Start 12/09/16 at 23:15; Stop 12/11/16 at 23:14; Status DC Enoxaparin Sodium (Lovenox 80mg Syringe) 80 mg 1X ONCE SQ Last administered on 12/10/16 00:43; Start 12/10/16 at 00:15; Stop 12/10/16 at 00:16; Status DC Ondansetron HCl 4 mg 4 mg PRN Q8HRS PRN IV NAUSEA/VOMITING; Start 12/10/16 at 00:15; Stop 12/10/16 at 08:59; Status DC Sodium Chloride (Iv Sodium Chloride 0.9% 1000ml Bag) 1,000 ml @ 100 mls/hr Q10H IV Last administered on 12/10/16 04:05; Start 12/10/16 at 00:15; Stop at 18:53; Status DC Acetaminophen (Tylenol) 650 mg PRN Q4HRS PRN PO FEVER; Start 12/10/16 at 00:15 ; Stop 12/11/16 at 00:14; Status DC Ondansetron HCl (Zofran) 4 mg PRN Q6HRS PRN IV NAUSEA/VOMITING; Start 12/10/16 at 08:56 Enoxaparin Sodium (Lovenox 80mg Syringe) 80 mg Q12HR SQ Last administered on 09:37; Start 12/10/16 at 09:30 Atorvastatin Calcium (Lipitor) 20 mg HS PO Last administered on 12/12/16 21:40 ; Start 12/10/16 at 21:00 Bisacodyl (Dulcolax Supp) 10 mg PRN DAILY PRN RC CONSTIPATION; Start 12/10/16 at 09:00 Calcium/Vitamin D (Oscal D 500mg/ 200uts) 1 tab DAILY PO Last administered on 09:36; Start 12/10/16 at 10:00 Cyclobenzaprine HCl (Flexeril) 10 mg PRN Q8HRS PRN PO MUSCLE SPASMS; Start at 09:00 Docusate Sodium (Colace) 100 mg PRN BID PRN PO CONSTIPATION Last administered on 12/11/16 10:06; Start 12/10/16 at 09:00; Stop 12/12/16 at 13:59; Status DC Gabapentin (Neurontin) 200 mg DAILY PO Last administered on 12/13/16 09:36; Start 12/10/16 at 09:30 Gabapentin (Neurontin) 300 mg HS PO Last administered on 12/12/16 21:40; Start 12/10/16 at 21:00 Albuterol Sulfate (Ventolin Neb Soln) 2.5 mg PRN Q4HRS PRN NEB SHORTNESS OF BREATH; Start 12/10/16 at 09:00 Lidocaine (Lidoderm) 1 patch DAILY TP Last administered on 12/13/16 09:38; Start 12/10/16 at 09:30 Magnesium Hydroxide (Milk Of Magnesia) 400 mg PRN DAILY PRN PO CONSTIPATION; Start 12/10/16 at 09:00 Morphine Sulfate (Morphine Ir) 15 mg PRN Q4HRS PRN PO PAIN SEVERE Last administered on 12/11/16 21:02; Start 12/10/16 at 09:00 Multivitamins (Thera M Plus) 1 tab DAILY PO Last administered on 12/13/16 09: 36; Start 12/10/16 at 09:30 Sodium Biphosphate/ Sodium Phosphate (Fleet Adult) 133 ml PRN DAILY PRN RC CONSTIPATION; Start 12/10/16 at 09:00 Tamsulosin HCl (Flomax) 0.4 mg DAILY PO Last administered on 12/13/16 09:37; Start 12/10/16 at 09:30 Ascorbic Acid (Vitamin C) 1,000 mg DAILY PO Last administered on 12/13/16 09: 37; Start 12/10/16 at 10:00 Clonazepam (Klonopin) 2 mg QHS PO Last administered on 12/12/16 21:40; Start 12/10/16 at 21:00 Cyanocobalamin (Vitamin B-12) 1,000 mcg DAILY PO Last administered on 09:36; Start 12/10/16 at 09:30 Fluoxetine HCl (Prozac) 40 mg DAILY PO Last administered on 12/13/16 09:37; Start 12/10/16 at 09:30 Non-Formulary Medication 1 each DAILY PO ; Start 12/10/16 at 09:00; Status UNV Lamotrigine (LaMICtal) 200 mg DAILY PO Last administered on 12/13/16 09:36; Start 12/10/16 at 09:30 Al Hydroxide/Mg Hydroxide (Mylanta Plus Xs) 30 ml PRN Q2HR PRN PO CONSTIPATION ; Start 12/10/16 at 09:30 Pantoprazole Sodium (Protonix) 40 mg DAILYAC PO Last administered on 12/13/16 06:15; Start 12/10/16 at 09:30 Oxybutynin Chloride (Ditropan) 5 mg [id number] PO Last administered on 12/13/16 09 :37; Start 12/10/16 at 09:30 Risperidone (Risperdal) 2 mg QHS PO Last administered on 12/12/16 21:40; Start 12/10/16 at 21:00 Info (Anti-Coagulation Monitoring By Pharmacy) 1 each PRN DAILY PRN MC SEE COMMENTS Last administered on 12/12/16 10:38; Start 12/10/16 at 09:15 Warfarin Sodium (Coumadin Per Pharmacy) 1 each PRN DAILY PRN MC SEE COMMENTS Last administered on 12/13/16 10:16; Start 12/11/16 at 11:30 Warfarin Sodium (Coumadin) 5 mg 1X WARF ONCE PO Last administered on 17:15; Start 12/11/16 at 16:30; Stop 12/11/16 at 16:31; Status DC Warfarin Sodium (Coumadin) 7.5 mg 1X WARF ONCE PO Last administered on 16:33; Start 12/12/16 at 16:00; Stop 12/12/16 at 16:01; Status DC Oxycodone HCl (Oxycontin) 10 mg Q12HR PO Last administered on 12/13/16 10:20; Start 12/12/16 at 12:00 Docusate Sodium (Colace) 100 mg PRN BID PRN PO CONSTIPATION Last administered on 12/12/16 21:40; Start 12/12/16 at 14:00 Warfarin Sodium (Coumadin) 7.5 mg 1X WARF ONCE PO ; Start 12/13/16 at 16:00; Stop 12/13/16 at 16:01 Active Scripts Active Reported Alum-Mag Hydroxide-Simeth Liq (Mag Hydrox/Al Hydrox/Simeth) 360 Ml Oral.susp 360 Ml PO PRN Q4HRS PRN Risperidone 2 Mg Tablet 1 Tab PO QHS Tamsulosin Hcl 0.4 Mg Cap.er.24h 1 Cap PO DAILY Cyclobenzaprine Hcl 10 Mg Tablet 1 Tab PO PRN Q8HRS PRN Fleet Enema (Na Phos,M-B/Na Phos,Di-Ba) 133 Ml Enema 1 Each RC DAILY PRN Dulcolax (Bisacodyl) 10 Mg Supp.rect 10 Mg RC PRN DAILY PRN Milk Of Magnesia (Magnesium Hydroxide) 400 Mg/5 Ml Oral.susp 400 Mg PO DAILY PRN Atorvastatin Calcium 20 Mg Tablet 20 Mg PO HS Docusate Sodium 100 Mg Capsule 1 Cap PO BID PRN Calcium 500 + Vit D 200 Caplet (Calcium Carbonate/Vitamin D3) 1 Each Tablet 1 Each PO DAILY Fluoxetine Hcl 40 Mg Capsule 1 Cap PO DAILYWBKFT C-1000 (Ascorbic Acid) 1,000 Mg Tablet 1,000 Mg PO DAILY B-12 (Cyanocobalamin (Vitamin B-12)) 1,000 Mcg Tablet.er 1,000 Mcg PO DAILY Omeprazole 40 Mg Capsule. 1 Cap PO DAILY Lamotrigine 200 Mg Tablet 1 Tab PO DAILY Glucosamine Chondroitin Tab (Gluc Cherry/Chondro Cherry A/Vit C/Mn) 1 Each Tablet 1 Each PO DAILY Thera-M Tablet (Multivits,Ca,Minerals/Iron/Fa) 1 Each Tablet 1 Each PO Lidoderm (Lidocaine) 700 Mg Adh..patch 1 Patch TP DAILY Meloxicam 7.5 Mg Tablet 1 Tab PO BID Oxybutynin Chloride 5 Mg/5 Ml Syrup 5 Mg PO TID Clonazepam 2 Mg Tablet 1 Tab PO HS Morphine Sulfate 15 Mg Tablet 15 Mg PO PRN Q4HRS PRN Gabapentin 300 Mg Capsule 300 Mg PO HS Gabapentin 100 Mg Capsule 200 Mg PO DAILY Duoneb 0.5-3(2.5) Mg/3 Ml (Albuterol/Ipratropium) 3 Ml Ampul.neb 3 Ml NEB PRN Q4HRS PRN Vitals/I & O Vital Sign - Last 24 Hours 12/12/16 12/12/16 12/12/16 12/12/16 11:00 13:39 15:00 19:25 Temp 97.8 97.6 97.8 97.6 Pulse 65 67 Resp 20 16 18 B/P 116/72 115/73 Pulse Ox 93 93 94 O2 Delivery Nasal Cannula Nasal Cannula Nasal Cannula Nasal Cannula O2 Flow Rate 2.0 2.0 2.0 2.0 12/12/16 12/12/16 12/12/16 12/13/16 19:25 21:41 23:00 01:45 Temp 98.2 98.2 98.2 98.2 Pulse 75 69 Resp 16 16 16 B/P 124/77 147/89 Pulse Ox 97 93 94 94 O2 Delivery Nasal Cannula Nasal Cannula Nasal Cannula Nasal Cannula O2 Flow Rate 2.0 2.0 2.0 2.0 12/13/16 12/13/16 12/13/16 12/13/16 03:06 07:40 08:00 10:07 Temp 97.8 97.5 97.8 97.8 97.5 97.8 Pulse 72 66 71 Resp 16 10 12 B/P 116/67 141/85 130/74 Pulse Ox 94 94 95 O2 Delivery Nasal Cannula Nasal Cannula Nasal Cannula Nasal Cannula O2 Flow Rate 2.0 2.0 2.0 2.0 12/13/16 10:20 Resp 16 O2 Delivery Room Air Intake and Output 12/12/16 12/12/16 12/13/16 15:00 23:00 07:00 Intake Total 920 ml 360 ml Output Total 750 ml 500 ml Balance 170 ml -140 ml ISIDRO MOORE MD Dec 13, 2016 10:29
--- NOTE | 2016-12-13 11:44 | PDOC ---
PROGRESS NOTES Chief Complaint Chief Complaint Assessment: 1. Subacute eccentric PE 2. Bruising left side possibly fall 3. Depression NOS 4. Chronic lumbago 5. Bilateral hip pain L> R 6. Moderate PCM 7. Anemia of chronic disease History of Present Illness History of Present Illness Patient was laying in the bed at the time of evaluation, was in no acute distress. Had no acute event overnight. Feeling better, pain in hip has improved. Breathing was better, has no SOB, CP. Bruises were noticed on right knee, left shoulder. plan of care discussed with pt. and classification case manager. Vitals Vitals Vital Signs Date Time Temp Pulse Resp B/P Pulse Ox O2 Delivery O2 Flow Rate FiO2 12/13/16 10:20 16 Room Air 12/13/16 10:07 97.8 71 130/74 95 2.0 97.8 Physical Exam General: Alert, Oriented X3, Cooperative, No acute distress Heart: Regular rate, Normal S1, Normal S2 Lungs: Clear Abdomen: Normal bowel sounds, Soft, No tenderness, No hepatosplenomegaly, No masses Extremities: No clubbing, No cyanosis, Other (bruise on left shoulder, buise on right knee) Skin: Other (as above) Labs LABS Laboratory Tests Test 12/13/16 03:15 White Blood Count 6.3x10^3/uL (4.0-11.0) Red Blood Count 3.76x10^6/uL (4.30-5.70) Hemoglobin 12.5g/dL (13.0-17.5) Hematocrit 36.1% (39.0-53.0) Mean Corpuscular Volume 96fL (79-100) Mean Corpuscular Hemoglobin 33pg (25-35) Mean Corpuscular Hemoglobin Concent 35g/dL (31-37) Red Cell Distribution Width 13.7% (11.5-14.5) Platelet Count 185x10^3/uL (140-400) Neutrophils (%) (Auto) 72% (31-73) Lymphocytes (%) (Auto) 15% (24-48) Monocytes (%) (Auto) 8% (0-9) Eosinophils (%) (Auto) 4% (0-3) Basophils (%) (Auto) 1% (0-3) Neutrophils # (Auto) 4.5x10^3uL (1.8-7.7) Lymphocytes # (Auto) 0.9x10^3/uL (1.0-4.8) Monocytes # (Auto) 0.5x10^3/uL (0.0-1.1) Eosinophils # (Auto) 0.3x10^3/uL (0.0-0.7) Basophils # (Auto) 0.1x10^3/uL (0.0-0.2) Prothrombin Time 14.4SEC (11.7-14.0) Prothromb Time International Ratio 1.2 (0.8-1.1) Sodium Level 138mmol/L (136-145) Potassium Level 4.2mmol/L (3.5-5.1) Chloride Level 102mmol/L (98-107) Carbon Dioxide Level 29mmol/L (21-32) Anion Gap 7 (6-14) Blood Urea Nitrogen 17mg/dL (8-26) Creatinine 1.0mg/dL (0.7-1.3) Estimated GFR (Cockcroft-Gault) 72.6 Glucose Level 104mg/dL (70-99) Calcium Level 8.8mg/dL (8.5-10.1) Review of Systems Review of Systems Denies fever, chills Denies SOB, CP Denies n/v/d Hip pain is under control awake, alert, oriented Assessment and Plan Assessmemt and Plan Assessment: 1. Subacute eccentric PE 2. Bruising left side possibly fall 3. Depression NOS 4. Chronic lumbago 5. Bilateral hip pain L> R 6. Moderate PCM 7. Anemia of chronic disease PLAN: Probable discharge today to [facility] Continue coumadin per pharmacy continue prn pain meds Goal INR 2-3 continue to follow INR D/w pt., RN and classification case manager Appreciate subspecialities inputs and recommendations Problems Medical Problems: (1) Pulmonary embolism Status: Acute Problems: Comment Review of Relevant I have reviewed the following items zeynep (where applicable) has been applied. Labs Laboratory Tests Test 12/11/16 15:25 12/12/16 04:03 12/13/16 03:15 Prothrombin Time 14.2SEC (11.7-14.0) 13.8SEC (11.7-14.0) 14.4SEC (11.7-14.0) Prothromb Time International Ratio 1.2 (0.8-1.1) 1.1 (0.8-1.1) 1.2 (0.8-1.1) White Blood Count 6.3x10^3/uL (4.0-11.0) Red Blood Count 3.76x10^6/uL (4.30-5.70) Hemoglobin 12.5g/dL (13.0-17.5) Hematocrit 36.1% (39.0-53.0) Mean Corpuscular Volume 96fL (79-100) Mean Corpuscular Hemoglobin 33pg (25-35) Mean Corpuscular Hemoglobin Concent 35g/dL (31-37) Red Cell Distribution Width 13.7% (11.5-14.5) Platelet Count 185x10^3/uL (140-400) Neutrophils (%) (Auto) 72% (31-73) Lymphocytes (%) (Auto) 15% (24-48) Monocytes (%) (Auto) 8% (0-9) Eosinophils (%) (Auto) 4% (0-3) Basophils (%) (Auto) 1% (0-3) Neutrophils # (Auto) 4.5x10^3uL (1.8-7.7) Lymphocytes # (Auto) 0.9x10^3/uL (1.0-4.8) Monocytes # (Auto) 0.5x10^3/uL (0.0-1.1) Eosinophils # (Auto) 0.3x10^3/uL (0.0-0.7) Basophils # (Auto) 0.1x10^3/uL (0.0-0.2) Sodium Level 138mmol/L (136-145) Potassium Level 4.2mmol/L (3.5-5.1) Chloride Level 102mmol/L (98-107) Carbon Dioxide Level 29mmol/L (21-32) Anion Gap 7 (6-14) Blood Urea Nitrogen 17mg/dL (8-26) Creatinine 1.0mg/dL (0.7-1.3) Estimated GFR (Cockcroft-Gault) 72.6 Glucose Level 104mg/dL (70-99) Calcium Level 8.8mg/dL (8.5-10.1) Laboratory Tests Test 12/13/16 03:15 White Blood Count 6.3x10^3/uL (4.0-11.0) Red Blood Count 3.76x10^6/uL (4.30-5.70) Hemoglobin 12.5g/dL (13.0-17.5) Hematocrit 36.1% (39.0-53.0) Mean Corpuscular Volume 96fL (79-100) Mean Corpuscular Hemoglobin 33pg (25-35) Mean Corpuscular Hemoglobin Concent 35g/dL (31-37) Red Cell Distribution Width 13.7% (11.5-14.5) Platelet Count 185x10^3/uL (140-400) Neutrophils (%) (Auto) 72% (31-73) Lymphocytes (%) (Auto) 15% (24-48) Monocytes (%) (Auto) 8% (0-9) Eosinophils (%) (Auto) 4% (0-3) Basophils (%) (Auto) 1% (0-3) Neutrophils # (Auto) 4.5x10^3uL (1.8-7.7) Lymphocytes # (Auto) 0.9x10^3/uL (1.0-4.8) Monocytes # (Auto) 0.5x10^3/uL (0.0-1.1) Eosinophils # (Auto) 0.3x10^3/uL (0.0-0.7) Basophils # (Auto) 0.1x10^3/uL (0.0-0.2) Prothrombin Time 14.4SEC (11.7-14.0) Prothromb Time International Ratio 1.2 (0.8-1.1) Sodium Level 138mmol/L (136-145) Potassium Level 4.2mmol/L (3.5-5.1) Chloride Level 102mmol/L (98-107) Carbon Dioxide Level 29mmol/L (21-32) Anion Gap 7 (6-14) Blood Urea Nitrogen 17mg/dL (8-26) Creatinine 1.0mg/dL (0.7-1.3) Estimated GFR (Cockcroft-Gault) 72.6 Glucose Level 104mg/dL (70-99) Calcium Level 8.8mg/dL (8.5-10.1) Medications Current Medications Iohexol (Omnipaque 300 Mg/ml) 75 ml 1X ONCE IV ; Start 12/09/16 at 23:00; Stop 12/09/16 at 23:01; Status DC Info (Do NOT chart on this entry -- for MONITORING) 1 each PRN DAILY PRN MC SEE COMMENTS; Start 12/09/16 at 23:15; Stop 12/11/16 at 23:14; Status DC Enoxaparin Sodium (Lovenox 80mg Syringe) 80 mg 1X ONCE SQ Last administered on 12/10/16 00:43; Start 12/10/16 at 00:15; Stop 12/10/16 at 00:16; Status DC Ondansetron HCl 4 mg 4 mg PRN Q8HRS PRN IV NAUSEA/VOMITING; Start 12/10/16 at 00:15; Stop 12/10/16 at 08:59; Status DC Sodium Chloride (Iv Sodium Chloride 0.9% 1000ml Bag) 1,000 ml @ 100 mls/hr Q10H IV Last administered on 12/10/16 04:05; Start 12/10/16 at 00:15; Stop at 18:53; Status DC Acetaminophen (Tylenol) 650 mg PRN Q4HRS PRN PO FEVER; Start 12/10/16 at 00:15 ; Stop 12/11/16 at 00:14; Status DC Ondansetron HCl (Zofran) 4 mg PRN Q6HRS PRN IV NAUSEA/VOMITING; Start 12/10/16 at 08:56 Enoxaparin Sodium (Lovenox 80mg Syringe) 80 mg Q12HR SQ Last administered on 09:37; Start 12/10/16 at 09:30 Atorvastatin Calcium (Lipitor) 20 mg HS PO Last administered on 12/12/16 21:40 ; Start 12/10/16 at 21:00 Bisacodyl (Dulcolax Supp) 10 mg PRN DAILY PRN RC CONSTIPATION; Start 12/10/16 at 09:00 Calcium/Vitamin D (Oscal D 500mg/ 200uts) 1 tab DAILY PO Last administered on 09:36; Start 12/10/16 at 10:00 Cyclobenzaprine HCl (Flexeril) 10 mg PRN Q8HRS PRN PO MUSCLE SPASMS; Start at 09:00 Docusate Sodium (Colace) 100 mg PRN BID PRN PO CONSTIPATION Last administered on 12/11/16 10:06; Start 12/10/16 at 09:00; Stop 12/12/16 at 13:59; Status DC Gabapentin (Neurontin) 200 mg DAILY PO Last administered on 12/13/16 09:36; Start 12/10/16 at 09:30 Gabapentin (Neurontin) 300 mg HS PO Last administered on 12/12/16 21:40; Start 12/10/16 at 21:00 Albuterol Sulfate (Ventolin Neb Soln) 2.5 mg PRN Q4HRS PRN NEB SHORTNESS OF BREATH; Start 12/10/16 at 09:00 Lidocaine (Lidoderm) 1 patch DAILY TP Last administered on 12/13/16 09:38; Start 12/10/16 at 09:30 Magnesium Hydroxide (Milk Of Magnesia) 400 mg PRN DAILY PRN PO CONSTIPATION; Start 12/10/16 at 09:00 Morphine Sulfate (Morphine Ir) 15 mg PRN Q4HRS PRN PO PAIN SEVERE Last administered on 12/11/16 21:02; Start 12/10/16 at 09:00 Multivitamins (Thera M Plus) 1 tab DAILY PO Last administered on 12/13/16 09: 36; Start 12/10/16 at 09:30 Sodium Biphosphate/ Sodium Phosphate (Fleet Adult) 133 ml PRN DAILY PRN RC CONSTIPATION; Start 12/10/16 at 09:00 Tamsulosin HCl (Flomax) 0.4 mg DAILY PO Last administered on 12/13/16 09:37; Start 12/10/16 at 09:30 Ascorbic Acid (Vitamin C) 1,000 mg DAILY PO Last administered on 12/13/16 09: 37; Start 12/10/16 at 10:00 Clonazepam (Klonopin) 2 mg QHS PO Last administered on 12/12/16 21:40; Start 12/10/16 at 21:00 Cyanocobalamin (Vitamin B-12) 1,000 mcg DAILY PO Last administered on 09:36; Start 12/10/16 at 09:30 Fluoxetine HCl (Prozac) 40 mg DAILY PO Last administered on 12/13/16 09:37; Start 12/10/16 at 09:30 Non-Formulary Medication 1 each DAILY PO ; Start 12/10/16 at 09:00; Status UNV Lamotrigine (LaMICtal) 200 mg DAILY PO Last administered on 12/13/16 09:36; Start 12/10/16 at 09:30 Al Hydroxide/Mg Hydroxide (Mylanta Plus Xs) 30 ml PRN Q2HR PRN PO CONSTIPATION ; Start 12/10/16 at 09:30 Pantoprazole Sodium (Protonix) 40 mg DAILYAC PO Last administered on 12/13/16 06:15; Start 12/10/16 at 09:30 Oxybutynin Chloride (Ditropan) 5 mg [id number] PO Last administered on 12/13/16 09 :37; Start 12/10/16 at 09:30 Risperidone (Risperdal) 2 mg QHS PO Last administered on 12/12/16 21:40; Start 12/10/16 at 21:00 Info (Anti-Coagulation Monitoring By Pharmacy) 1 each PRN DAILY PRN MC SEE COMMENTS Last administered on 12/12/16 10:38; Start 12/10/16 at 09:15 Warfarin Sodium (Coumadin Per Pharmacy) 1 each PRN DAILY PRN MC SEE COMMENTS Last administered on 12/13/16 10:16; Start 12/11/16 at 11:30 Warfarin Sodium (Coumadin) 5 mg 1X WARF ONCE PO Last administered on 17:15; Start 12/11/16 at 16:30; Stop 12/11/16 at 16:31; Status DC Warfarin Sodium (Coumadin) 7.5 mg 1X WARF ONCE PO Last administered on 16:33; Start 12/12/16 at 16:00; Stop 12/12/16 at 16:01; Status DC Oxycodone HCl (Oxycontin) 10 mg Q12HR PO Last administered on 12/13/16 10:20; Start 12/12/16 at 12:00 Docusate Sodium (Colace) 100 mg PRN BID PRN PO CONSTIPATION Last administered on 12/12/16 21:40; Start 12/12/16 at 14:00 Warfarin Sodium (Coumadin) 7.5 mg 1X WARF ONCE PO ; Start 12/13/16 at 16:00; Stop 12/13/16 at 16:01 Active Scripts Active Reported Alum-Mag Hydroxide-Simeth Liq (Mag Hydrox/Al Hydrox/Simeth) 360 Ml Oral.susp 360 Ml PO PRN Q4HRS PRN Risperidone 2 Mg Tablet 1 Tab PO QHS Tamsulosin Hcl 0.4 Mg Cap.er.24h 1 Cap PO DAILY Cyclobenzaprine Hcl 10 Mg Tablet 1 Tab PO PRN Q8HRS PRN Fleet Enema (Na Phos,M-B/Na Phos,Di-Ba) 133 Ml Enema 1 Each RC DAILY PRN Dulcolax (Bisacodyl) 10 Mg Supp.rect 10 Mg RC PRN DAILY PRN Milk Of Magnesia (Magnesium Hydroxide) 400 Mg/5 Ml Oral.susp 400 Mg PO DAILY PRN Atorvastatin Calcium 20 Mg Tablet 20 Mg PO HS Docusate Sodium 100 Mg Capsule 1 Cap PO BID PRN Calcium 500 + Vit D 200 Caplet (Calcium Carbonate/Vitamin D3) 1 Each Tablet 1 Each PO DAILY Fluoxetine Hcl 40 Mg Capsule 1 Cap PO DAILYWBKFT C-1000 (Ascorbic Acid) 1,000 Mg Tablet 1,000 Mg PO DAILY B-12 (Cyanocobalamin (Vitamin B-12)) 1,000 Mcg Tablet.er 1,000 Mcg PO DAILY Omeprazole 40 Mg Capsule.dr 1 Cap PO DAILY Lamotrigine 200 Mg Tablet 1 Tab PO DAILY Glucosamine Chondroitin Tab (Gluc Cherry/Chondro Cherry A/Vit C/Mn) 1 Each Tablet 1 Each PO DAILY Thera-M Tablet (Multivits,Ca,Minerals/Iron/Fa) 1 Each Tablet 1 Each PO Lidoderm (Lidocaine) 700 Mg Adh..patch 1 Patch TP DAILY Meloxicam 7.5 Mg Tablet 1 Tab PO BID Oxybutynin Chloride 5 Mg/5 Ml Syrup 5 Mg PO TID Clonazepam 2 Mg Tablet 1 Tab PO HS Morphine Sulfate 15 Mg Tablet 15 Mg PO PRN Q4HRS PRN Gabapentin 300 Mg Capsule 300 Mg PO HS Gabapentin 100 Mg Capsule 200 Mg PO DAILY Duoneb 0.5-3(2.5) Mg/3 Ml (Albuterol/Ipratropium) 3 Ml Ampul.neb 3 Ml NEB PRN Q4HRS PRN Vitals/I & O Vital Sign - Last 24 Hours 12/12/16 12/12/16 12/12/16 12/12/16 13:39 15:00 19:25 19:25 Temp 97.6 98.2 97.6 98.2 Pulse 67 75 Resp B/P 115/73 124/77 Pulse Ox 93 94 97 O2 Delivery Nasal Cannula Nasal Cannula Nasal Cannula Nasal Cannula O2 Flow Rate 2.0 2.0 2.0 2.0 12/12/16 12/12/16 12/13/16 12/13/16 21:41 23:00 01:45 03:06 Temp 98.2 97.8 98.2 97.8 Pulse 69 72 Resp B/P 147/89 116/67 Pulse Ox 93 94 94 94 O2 Delivery Nasal Cannula Nasal Cannula Nasal Cannula Nasal Cannula O2 Flow Rate 2.0 2.0 2.0 2.0 12/13/16 12/13/16 12/13/16 12/13/16 07:40 08:00 10:07 10:20 Temp 97.5 97.8 97.5 97.8 Pulse 66 71 Resp 06 29 16 B/P 141/85 130/74 Pulse Ox 94 95 O2 Delivery Nasal Cannula Nasal Cannula Nasal Cannula Room Air O2 Flow Rate 2.0 2.0 2.0 Intake and Output 12/12/16 12/12/16 12/13/16 15:00 23:00 07:00 Intake Total 920 ml 360 ml Output Total 750 ml 500 ml Balance 170 ml -140 ml SHREYA YI III DO Dec 13, 2016 11:44
[2016-12-13] MEDS ORDERED: WARFARIN 7.5 MG TABLET. PO ONE (16:00)
== END 2016-12-13 12:30 | DRG 175 ==
LOC: ER 22:01 → 2 NORTH 23:29
PROVIDERS: ADMIT Internal Medicine; ATTEND Internal Medicine
DX: I26.99 Other pulmonary embolism without acute cor pulmonale (principal); J96.00 Acute respiratory failure, unspecified whether with hypoxia or hypercapnia; E44.0 Moderate protein-calorie malnutrition; D63.8 Anemia in other chronic diseases classified elsewhere; E78.00 Pure hypercholesterolemia, unspecified; F32.9 Major depressive disorder, single episode, unspecified; F41.9 Anxiety disorder, unspecified; G25.81 Restless legs syndrome; G40.909 Epilepsy, unspecified, not intractable, without status epilepticus; G89.29 Other chronic pain; I10 Essential (primary) hypertension; M25.552 Pain in left hip; M25.551 Pain in right hip; J44.9 Chronic obstructive pulmonary disease, unspecified; G62.9 Polyneuropathy, unspecified; K21.9 Gastro-esophageal reflux disease without esophagitis; M19.90 Unspecified osteoarthritis, unspecified site; Z79.01 Long term (current) use of anticoagulants; Z82.49 Family history of ischemic heart disease and other diseases of the circulatory system; Z86.73 Personal history of transient ischemic attack (TIA), and cerebral infarction without residual deficits; Z90.49 Acquired absence of other specified parts of digestive tract; Z87.891 Personal history of nicotine dependence; Z68.25 Body mass index [BMI] 25.0-25.9, adult
CPT/HCPCS: 36415; 71010; 71275; 73521; 74177; 80048; 81001; 84484; 85007; 85027; 85610; 87641; 93005; 93970; 94250; 96372; G0481; J1650; J7030; 97110; 97116; 99285-25